=== PATIENT | male | born 1950 | race African-American/Black ===

== ENCOUNTER 2019-11-20 07:41 | Inpatient (IN) | payer MEDICAID, OTHER ==
[~2019-11-20] VITALS: Ht 182.9 cm; Wt 85.7 kg
--- NOTE | 2019-11-20 07:42 | NUR ---
ED Nurse Note: Pt BIBA from apartment for SOB since yesterday. O2 sat 4L NC 100%. Pt has history of CHF. Pt testes negative for COVID 1 month ago. Pt is alert and ox4, ambulatory but weak. Pt is set up on monitor. EKG taken.
[2019-11-20] MEDS ORDERED: ADVAIR 250-501 EACH INH (07:55)
[2019-11-20] MEDS ORDERED: MULTIVITAMINS1 EAC2 ORAL (07:55)
[2019-11-20] MEDS ORDERED: FUROSEMIDE40 MG ORAL (07:55)
[2019-11-20] MEDS ORDERED: ATORVASTATIN CA40 MG ORAL (07:55)
[2019-11-20] MEDS ORDERED: SPIRIVA18 MCG INH (07:55)
[2019-11-20] MEDS ORDERED: ASPIRIN81 MG ORAL (07:55)
[2019-11-20] MEDS ORDERED: ZESTRIL10 M1 ORAL (07:55)
[2019-11-20] MEDS ORDERED: CARVEDILOL3.125 MG ORAL (07:55)
--- NOTE | 2019-11-20 07:55 | Emergency Room Report ---
History of Present Illness General Chief Complaint: Dyspnea/Respdistress Source: Patient Present Illness HPI Patient is a 69-year-old male who presents after increased shortness of breath. He reports having run out of his Lasix 2 days ago. Reports having prior history of congestive heart failure. Patient states he also has a history of COPD and quit smoking approximately 3 weeks ago. Had prior history of myocardial infarction and states that he had some chest discomfort. Had recent taken nitroglycerin. He reports having increased leg swelling and overall shortness of breath. Denies any recent fever. Reportedly had a recent negative coronavirus test. Denies any current chest pain.Patient was brought in by EMS after increased difficulty with respirations. 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 Patient History Past Medical History: HTN, CAD, CHF, COPD, other - glaucoma Reviewed Nursing Documentation: PMH: Agreed; PSxH: Agreed Nursing Documentation-PMH Past Medical History: No History, Except For Hx Cardiac Problems: Yes Hx COPD: Yes Review of Systems Constitutional: Reports: no symptoms Eye: Reports: blurred vision Respiratory: Reports: orthopnea, shortness of breath, other Cardiovascular: Reports: edema Neurological: Reports: no symptoms Physical Exam Vital Signs Date Time Temp Pulse Resp B/P (MAP) Pulse Ox O2 Delivery O2 Flow Rate FiO2 11/20/19 07:35 97.5 93 20 143/89 (107) 100 Nasal Cannula 2.0 General Appearance: alert, GCS 15, Chronically Ill ENT: hearing grossly normal Neck: full range of motion, other - Jugular venous distention Respiratory: lungs clear, rales Cardiovascular #1: normal peripheral pulses, edema - 3+Edema Gastrointestinal: normal inspection, normal bowel sounds, non tender Musculoskeletal: normal inspection, swelling Neurologic: alert, motor strength/tone normal, rn staffing III-XII nml as tested, oriented x3 Skin: no rash Medical Decision Making Diagnostic Impression: Primary Impression: CHF exacerbation ER Course Patient presented for shortness of breath. Differential diagnosis include was not limited to CHF, pneumonia, myocardial infarction, coronavirus infection, anemia among others. Because of complexity of patient's case laboratory tests and imaging studies were ordered. Patient's EKG interpreted by me showed normal sinus rhythm with a rate of [address] or T wave changes noted. Patient does have some prior history of congestive heart failure and ran out of his medication recently. This appears to be the precipitating issue causing the shortness of breath. Patient does appear to be fluid overload however blood pressure was somewhat on the low side. Patient was given aspirin as well as breathing treatments. He was also given topical nitrates.Patient had previously been on furosemide and had previously been taking medications for glaucoma. He denies any recent fever or sick contacts.Chest x-ray 1 view interpreted by me showed cardiomegaly with vascular congestion no infiltrate or effusion. Laboratory testing showed no evidence of acute [place]. Rapid coronavirus testing was negative. Patient's BNP was noted to be markedly elevated consistent with CHF. Patient was also given topical nitrates as well as Lasix. Dr. Conway was contacted for for inpatient management Labs Test 11/20/19 08:00 11/20/19 08:10 11/20/19 08:50 White Blood Count 5.6 K/UL (4.8-10.8) Red Blood Count 5.36 M/UL (4.70-6.10) Hemoglobin 13.1 G/DL (14.2-18.0) Hematocrit 44.9 % (42.0-52.0) Mean Corpuscular Volume 84 FL (80-99) Mean Corpuscular Hemoglobin 24.5 PG (27.0-31.0) Mean Corpuscular Hemoglobin Concent 29.3 G/DL (32.0-36.0) Red Cell Distribution Width 17.1 % (11.6-14.8) Platelet Count 164 K/UL (150-450) Mean Platelet Volume 10.1 FL (6.5-10.1) Neutrophils (%) (Auto) 53.6 % (45.0-75.0) Lymphocytes (%) (Auto) 31.8 % (20.0-45.0) Monocytes (%) (Auto) 12.3 % (1.0-10.0) Eosinophils (%) (Auto) 1.6 % (0.0-3.0) Basophils (%) (Auto) 0.7 % (0.0-2.0) Sodium Level 139 MMOL/L (136-145) Potassium Level 4.4 MMOL/L (3.5-5.1) Chloride Level 107 MMOL/L (98-107) Carbon Dioxide Level 21 MMOL/L (21-32) Anion Gap 11 mmol/L (5-15) Blood Urea Nitrogen 23 mg/dL (7-18) Creatinine 1.7 MG/DL (0.55-1.30) Estimat Glomerular Filtration Rate 40.3 mL/min (>60) Glucose Level 105 MG/DL (74-106) Calcium Level 8.3 MG/DL (8.5-10.1) Total Bilirubin 1.3 MG/DL (0.2-1.0) Direct Bilirubin 1.0 MG/DL (0.0-0.3) Aspartate Amino Transf (AST/SGOT) 53 U/L (15-37) Alanine Aminotransferase (ALT/SGPT) 38 U/L (12-78) Alkaline Phosphatase 297 U/L (46-116) Troponin I 0.012 ng/mL (0.000-0.056) Pro-B-Type Natriuretic Peptide 19145 pg/mL (0-125) Total Protein 7.1 G/DL (6.4-8.2) Albumin 3.2 G/DL (3.4-5.0) Globulin 3.9 g/dL Albumin/Globulin Ratio 0.8 (1.0-2.7) Thyroid Stimulating Hormone (TSH) 2.107 uiU/mL (0.358-3.740) Urine Color Yellow Urine Appearance Clear Urine pH 5 (4.5-8.0) Urine Specific [place] 1.020 (1.005-1.035) Urine Protein 4+ (NEGATIVE) Urine Glucose (UA) Negative (NEGATIVE) Urine Ketones Negative (NEGATIVE) Urine Blood Negative (NEGATIVE) Urine Nitrite Negative (NEGATIVE) Urine Bilirubin Negative (NEGATIVE) Urine Urobilinogen 4 MG/DL (0.0-1.0) Urine Leukocyte Esterase Negative (NEGATIVE) Urine RBC 0 /HPF (0 - 0) Urine WBC 0-2 /HPF (0 - 0) Urine Squamous Epithelial Cells Few /LPF (NONE/OCC) Urine Bacteria Occasional /HPF (NONE) EKG Diagnostic Results Rate: normal Rhythm: NSR ST Segments: no acute changes Last Vital Signs Date Time Temp Pulse Resp B/P (MAP) Pulse Ox O2 Delivery O2 Flow Rate FiO2 11/20/19 07:35 97.5 93 20 143/89 (107) 100 Nasal Cannula 2.0 Status: unchanged Disposition: ADMITTED INPATIENT Condition: Stable Odilon Tubbs MD Nov 20, 2019 07:55
[2019-11-20] MEDS ORDERED: Albuterol/Ipratropium 3ml neb HHN SCH (08:00)
[2019-11-20] MEDS ORDERED: Nitroglycerin 2% oint pkt TOPIC ONE (08:00)
[2019-11-20 08:11] LABS: BASOPHILS % (AUTO) 0.7 % (0.0-2.0); EOSINOPHILS % (AUTO) 1.6 % (0.0-3.0); HEMATOCRIT 44.9 % (42.0-52.0); HEMOGLOBIN 13.1 G/DL (14.2-18.0); LYMPHOCYTES % (AUTO) 31.8 % (20.0-45.0); MEAN CORPUSCULAR VOLUME 84 FL (80-99); MONOCYTES % (AUTO) 12.3 % (1.0-10.0); NEUTROPHILS % (AUTO) 53.6 % (45.0-75.0); PLATELET COUNT 164 K/UL (150-450); RED BLOOD COUNT 5.36 M/UL (4.70-6.10); RED CELL DISTRIBUTION WIDTH 17.1 % (11.6-14.8); WHITE BLOOD COUNT 5.6 K/UL (4.8-10.8)
[2019-11-20 08:14] VITALS: BP 111/87
[2019-11-20 08:21] LABS: ANION GAP 11 mmol/L (5-15); BLOOD UREA NITROGEN 23 mg/dL (7-18); CALCIUM 8.3 MG/DL (8.5-10.1); CARBON DIOXIDE 21 MMOL/L (21-32); CHLORIDE 107 MMOL/L (98-107); CREATININE 1.7 MG/DL (0.55-1.30); POTASSIUM 4.4 MMOL/L (3.5-5.1); SODIUM 139 MMOL/L (136-145)
[2019-11-20 08:35] LABS: ALANINE AMINOTRANSFERASE 38 U/L (12-78); ALBUMIN 3.2 G/DL (3.4-5.0); ALBUMIN/GLOBULIN RATIO 0.8 (1.0-2.7); ALKALINE PHOSPHATASE 297 U/L (46-116); ASPARTATE AMINO TRANSFERASE 53 U/L (15-37); BILIRUBIN,TOTAL 1.3 MG/DL (0.2-1.0)
--- NOTE | 2019-11-20 08:59 | NUR ---
ED Nurse Note: Urine sent.
[2019-11-20 09:13] LABS: APPEARANCE,URINE CLEAR; BILIRUBIN, URINE NEGATIVE (NEGATIVE); GLUCOSE, URINE (UA) NEGATIVE (NEGATIVE); KETONES,URINE NEGATIVE (NEGATIVE); LEUKOCYTE ESTERASE ,URINE NEGATIVE (NEGATIVE); NITRITE,URINE NEGATIVE (NEGATIVE); PH,URINE 5 (4.5-8.0); PROTEIN,URINE 4+ (NEGATIVE); UROBILINOGEN,URINE 4 MG/DL (0.0-1.0)
[2019-11-20 09:14] LABS: COLOR,URINE YELLOW
[2019-11-20 10:04] VITALS: BP 118/81
--- NOTE | 2019-11-20 10:17 | NUR ---
ED Nurse Note: Report given to Sadiq MELGOZA.
--- NOTE | 2019-11-20 10:18 | Diagnostic Imaging Report ---
Procedure: XRAY Chest 1v Reason for study: Reason For Exam: SOB Comparison films: None. FINDINGS: A single one view chest is obtained. Vascularity is normal. The lung gonzalez are clear bilaterally. There is cardiomegaly. No large effusion seen. The bony thorax appear unremarkable. IMPRESSION: NO ACUTE CARDIOPULMONARY DISEASE.
--- NOTE | 2019-11-20 10:25 | NUR ---
ED Nurse Note: Pt transferred with all belongings. Pt is alert and ox4, amb but weak. Pt sent with all belongings.
--- NOTE | 2019-11-20 10:30 | NUR ---
NURSE NOTES: Received pt from MARKET DIRECTOR Dipti,all admision assessments and instructions done and pt verbally confirmed to understand all. pt is awake and alert, pt has NC 2LMP, pt is on continues heart monitoring, pt has intact iv access LAC 20G SL. Dr George group are aware about admission, MD is coming to visit pt. all belongings checked with RN and are with pt. pt has meds will sent to pharmacy. all needs attended, bed is locked and is in the lowest position, call light within easy reach. will continue to monitor.
[2019-11-20 12:00] VITALS: BP 114/83
--- NOTE | 2019-11-20 12:34 | NUR ---
NURSE NOTES: Dr George hasn't ca;;ed back yet, RN called again and left massage, waiting to call back. will continue to monitor.
--- NOTE | 2019-11-20 12:56 | NUR ---
RESPIRATORY NOTE: treatment was not given because RAPID results weren't ready
--- NOTE | 2019-11-20 14:03 | NUR ---
NURSE NOTES: Dr Payton ordered to continue home meds, noted and carried out. and ordered SCD for DVT prophylaxis but RN explained to Dr the legs are swollen and Dr changed SCD to hep, noted and carried out.
--- NOTE | 2019-11-20 15:18 | NUR ---
Social Work This SW received a consult due to homeless. This SW met with patient who explains he plans to discharge to home with a friend, while requesting homeless long term information. Shelters and resources provided. Patient explains he receives only food stamps and general relief and does not qualify for Board and Care at this time. Patient denied any substance abuse or mental health concerns, appears pleasant and cooperative, well-groomed and remains independent and alert/oriented x4. No other needs/concerns at this time.
[2019-11-20 16:00] VITALS: BP 102/73
--- NOTE | 2019-11-20 16:01 | Consultation ---
History of Present Illness General Chief Complaint: Dyspnea/Respdistress Reason for Consultation: VALERIO Present Illness HPI This is a 69 year old male with past medical history of CHF, COPD who presents with SOB, BLE edema. Pt states he ran out of his lasix a few days ago. Notes increased SOB and b/l leg swelling. Mild chest discomfort. Denies f/c, n/v, d/c , abd pain, dysuria. In ED, trop neg, BNP elevated. pt given nitropatch, lasix 20mg IV. Allergies: Coded Allergies: No Known Allergies (Unverified , 11/20/19) Medication History Scheduled Aspirin* (Aspirin*), 81 MG ORAL DAILY, (Reported) Atorvastatin Calcium* (Atorvastatin Calcium*), 40 MG ORAL BEDTIME, (Reported) Carvedilol* (Carvedilol*), 3.125 MG ORAL EVERY 12 HOURS, (Reported) Fluticasone/Salmeterol (Advair 250-50 Diskus), 1 PUFF INH EVERY 12 HOURS, ( Reported) Furosemide* (Lasix*), 40 MG ORAL DAILY, (Reported) Lisinopril* (Zestril*), 10 MG ORAL DAILY, (Reported) Multivitamins* (Multivitamins*), 1 TAB ORAL DAILY, (Reported) Tiotropium [place]* (Spiriva*), 1 PUFF INH DAILY, (Reported) Patient History Healthcare decision maker Resuscitation status Advanced Directive on File Review of Systems Constitutional: Reports: weakness Eye: Denies: no symptoms, see HPI, eye pain, blurred vision, tearing, double vision, nose pain, nose congestion, acuity changes, discharge, other ENT: Denies: no symptoms, see HPI, ear pain, ear discharge, nose pain, nose congestion, throat pain, throat swelling, mouth pain, hearing loss, nasal discharge, other Respiratory: Reports: cough, shortness of breath Cardiovascular: Reports: chest pain, edema Gastrointestinal: Denies: no symptoms, see HPI, abdominal pain, constipation, diarrhea, nausea, vomiting, melena, hematemesis, other Genitourinary: Denies: no symptoms, see HPI, discharge, dysuria, frequency, hematuria, pain, retention, incontinence, urgency, vag bleed/dc, other Skin: Denies: no symptoms, see HPI, rash, change in color, change in hair/nails , dryness, lesions, other Psychiatric: Denies: no symptoms, see HPI, prior hx, anxiety, depressed feelings, emotional problems, SI, HI, hallucinations, other Neurological: Denies: no symptoms, see HPI, headache, numbness, paresthesia, seizure, tingling, tremors, focal weakness, syncope, dizziness, other Endocrine: Denies: no symptoms, see HPI, excessive sweating, flushing, intolerance to temperature, increased thirst, increased urine, unexplained weight loss, other Hematologic/Lymphatic: Denies: no symptoms, see HPI, anemia, blood clots, easy bleeding, easy bruising, swollen glands, diathesis, other Physical Exam General Appearance: no apparent distress, alert Lines, tubes and drains: peripheral HEENT: normocephalic, atraumatic Neck: non-tender, normal alignment Respiratory/Chest: crackles/rales Abdomen: normal bowel sounds, non tender, soft Extremities: normal range of motion, non-tender Skin Exam: normal pigmentation Neurologic: alert, oriented x 3 Last 24 Hour Vital Signs Date Time Temp Pulse Resp B/P (MAP) Pulse Ox O2 Delivery O2 Flow Rate FiO2 11/20/19 12:00 96.1 89 20 114/83 (93) 100 11/20/19 11:25 91 11/20/19 10:47 84 11/20/19 10:45 Nasal Cannula 2.0 11/20/19 10:32 97.5 82 19 121/80 99 Nasal Cannula 2.0 11/20/19 10:04 97.5 84 18 118/81 100 Nasal Cannula 2.0 11/20/19 08:14 97.5 91 17 111/87 99 Nasal Cannula 2.0 11/20/19 08:14 91 17 Nasal Cannula 2.0 99 11/20/19 08:05 102/84 11/20/19 07:35 97.5 93 20 143/89 (107) 100 Nasal Cannula 2.0 Laboratory Tests Test 11/20/19 08:00 11/20/19 08:10 11/20/19 08:50 White Blood Count 5.6 K/UL (4.8-10.8) Red Blood Count 5.36 M/UL (4.70-6.10) Hemoglobin 13.1 G/DL (14.2-18.0) L Hematocrit 44.9 % (42.0-52.0) Mean Corpuscular Volume 84 FL (80-99) Mean Corpuscular Hemoglobin 24.5 PG (27.0-31.0) L Mean Corpuscular Hemoglobin Concent 29.3 G/DL (32.0-36.0) L Red Cell Distribution Width 17.1 % (11.6-14.8) H Platelet Count 164 K/UL (150-450) Mean Platelet Volume 10.1 FL (6.5-10.1) Neutrophils (%) (Auto) 53.6 % (45.0-75.0) Lymphocytes (%) (Auto) 31.8 % (20.0-45.0) Monocytes (%) (Auto) 12.3 % (1.0-10.0) H Eosinophils (%) (Auto) 1.6 % (0.0-3.0) Basophils (%) (Auto) 0.7 % (0.0-2.0) Sodium Level 139 MMOL/L (136-145) Potassium Level 4.4 MMOL/L (3.5-5.1) Chloride Level 107 MMOL/L (98-107) Carbon Dioxide Level 21 MMOL/L (21-32) Anion Gap 11 mmol/L (5-15) Blood Urea Nitrogen 23 mg/dL (7-18) H Creatinine 1.7 MG/DL (0.55-1.30) H Estimat Glomerular Filtration Rate 40.3 mL/min (>60) Glucose Level 105 MG/DL (74-106) Calcium Level 8.3 MG/DL (8.5-10.1) L Total Bilirubin 1.3 MG/DL (0.2-1.0) H Direct Bilirubin 1.0 MG/DL (0.0-0.3) H Aspartate Amino Transf (AST/SGOT) 53 U/L (15-37) H Alanine Aminotransferase (ALT/SGPT) 38 U/L (12-78) Alkaline Phosphatase 297 U/L (46-116) H Troponin I 0.012 ng/mL (0.000-0.056) Pro-B-Type Natriuretic Peptide 66380 pg/mL (0-125) H Total Protein 7.1 G/DL (6.4-8.2) Albumin 3.2 G/DL (3.4-5.0) L Globulin 3.9 g/dL Albumin/Globulin Ratio 0.8 (1.0-2.7) L Thyroid Stimulating Hormone (TSH) 2.107 uiU/mL (0.358-3.740) Urine Color Yellow Urine Appearance Clear Urine pH 5 (4.5-8.0) Urine Specific [place] 1.020 (1.005-1.035) Urine Protein 4+ (NEGATIVE) H Urine Glucose (UA) Negative (NEGATIVE) Urine Ketones Negative (NEGATIVE) Urine Blood Negative (NEGATIVE) Urine Nitrite Negative (NEGATIVE) Urine Bilirubin Negative (NEGATIVE) Urine Urobilinogen 4 MG/DL (0.0-1.0) H Urine Leukocyte Esterase Negative (NEGATIVE) Urine RBC 0 /HPF (0 - 0) Urine WBC 0-2 /HPF (0 - 0) Urine Squamous Epithelial Cells Few /LPF (NONE/OCC) Urine Bacteria Occasional /HPF (NONE) Microbiology Date/Time Source Procedure Growth Status 11/20/19 08:10 Nasopharynx SARS-CoV-2 RdRp Gene Assay - Final Complete Height (Feet): 6 Height (Inches): 0.00 Weight (Pounds): 200 Medications Current Medications Medications (Trade) Dose Ordered Sig/Kellee Route PRN Reason Start Time Stop Time Status Last Admin Dose Admin Acetaminophen (Tylenol) 650 mg Q6H PRN ORAL HERNANDEZ/Pain 1-4/T>100.4 11/20/19 13:15 12/20/19 13:14 11/20/19 13:31 Aspirin (ASA) 81 mg DAILY ORAL 11/21/19 09:00 01/05/20 08:59 Atorvastatin Calcium (Lipitor) 40 mg BEDTIME ORAL 11/20/19 21:00 02/18/20 20:59 Carvedilol (Coreg) 3.125 mg EVERY 12 HOURS ORAL 11/20/19 21:00 12/20/19 20:59 Furosemide (Lasix) 40 mg DAILY ORAL 11/21/19 09:00 12/21/19 08:59 Heparin Sodium (Porcine) (Heparin 5000 units/ml) 5,000 units EVERY 12 HOURS SUBQ 11/20/19 21:00 01/04/20 20:59 Lisinopril (ZestriL) 10 mg DAILY ORAL 11/21/19 09:00 12/21/19 08:59 Multivitamins (Multivitamins) 1 tab DAILY ORAL 11/21/19 09:00 12/21/19 08:59 Salmeterol Xinafoate/ Fluticasone (Advair 250/50 Diskus) 1 puffs EVERY 12 HOURS INH 11/20/19 21:00 02/18/20 20:59 Assessment/Plan Diagnosis [place] I: #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 Nov 20, 2019 16:01
--- NOTE | 2019-11-20 16:33 | Consultation ---
History of Present Illness General Date patient seen: Nov 20, 2019 Time patient seen: 16:26 Chief Complaint: Dyspnea/Respdistress Reason for Consultation: VALERIO Present Illness HPI 69 year old male presents with CHF exacerbation after running out of his medications. He has hx of CHF, COPD who presents with SOB, BLE edema. Pt states he ran out of his lasix a few days ago. Notes increased SOB and b/l leg swelling. Mild chest discomfort. Denies f/c, n/v, d/c, abd pain, dysuria. In ED, trop neg, BNP elevated. pt given nitropatch, lasix 20mg IV. Allergies: Coded Allergies: No Known Allergies (Unverified , 11/20/19) Medication History Scheduled Aspirin* (Aspirin*), 81 MG ORAL DAILY, (Reported) Atorvastatin Calcium* (Atorvastatin Calcium*), 40 MG ORAL BEDTIME, (Reported) Carvedilol* (Carvedilol*), 3.125 MG ORAL EVERY 12 HOURS, (Reported) Fluticasone/Salmeterol (Advair 250-50 Diskus), 1 PUFF INH EVERY 12 HOURS, ( Reported) Furosemide* (Lasix*), 40 MG ORAL DAILY, (Reported) Lisinopril* (Zestril*), 10 MG ORAL DAILY, (Reported) Multivitamins* (Multivitamins*), 1 TAB ORAL DAILY, (Reported) Tiotropium [place]* (Spiriva*), 1 PUFF INH DAILY, (Reported) Patient History Healthcare decision maker Resuscitation status Advanced Directive on File Review of Systems Constitutional: Reports: no symptoms ENT: Reports: no symptoms Respiratory: Reports: orthopnea, shortness of breath Cardiovascular: Reports: no symptoms Gastrointestinal: Reports: no symptoms Genitourinary: Reports: no symptoms Musculoskeletal: Reports: no symptoms Skin: Reports: no symptoms Psychiatric: Reports: no symptoms Neurological: Reports: no symptoms Endocrine: Reports: no symptoms Hematologic/Lymphatic: Reports: no symptoms Physical Exam General Appearance: no apparent distress, alert, lethargic Lines, tubes and drains: peripheral HEENT: normocephalic, atraumatic, mucous membranes moist, PERRL Neck: non-tender, normal alignment, normal inspection Respiratory/Chest: chest wall non-tender, lungs clear, normal breath sounds, no respiratory distress Cardiovascular/Chest: normal peripheral pulses, normal rate, regular rhythm Abdomen: normal bowel sounds, non tender, no organomegaly Extremities: normal range of motion, non-tender, normal inspection, no calf tenderness, normal capillary refill, non-pitting Skin Exam: normal pigmentation, warm/dry, cyanotic 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, no motor/sensory deficits Last 24 Hour Vital Signs Date Time Temp Pulse Resp B/P (MAP) Pulse Ox O2 Delivery O2 Flow Rate FiO2 11/20/19 16:00 97.9 88 20 102/73 (83) 98 11/20/19 12:00 96.1 89 20 114/83 (93) 100 11/20/19 11:25 91 11/20/19 10:47 84 11/20/19 10:45 Nasal Cannula 2.0 11/20/19 10:32 97.5 82 19 121/80 99 Nasal Cannula 2.0 11/20/19 10:04 97.5 84 18 118/81 100 Nasal Cannula 2.0 11/20/19 08:14 97.5 91 17 111/87 99 Nasal Cannula 2.0 11/20/19 08:14 91 17 Nasal Cannula 2.0 99 11/20/19 08:05 102/84 11/20/19 07:35 97.5 93 20 143/89 (107) 100 Nasal Cannula 2.0 Laboratory Tests Test 11/20/19 08:00 11/20/19 08:10 11/20/19 08:50 White Blood Count 5.6 K/UL (4.8-10.8) Red Blood Count 5.36 M/UL (4.70-6.10) Hemoglobin 13.1 G/DL (14.2-18.0) L Hematocrit 44.9 % (42.0-52.0) Mean Corpuscular Volume 84 FL (80-99) Mean Corpuscular Hemoglobin 24.5 PG (27.0-31.0) L Mean Corpuscular Hemoglobin Concent 29.3 G/DL (32.0-36.0) L Red Cell Distribution Width 17.1 % (11.6-14.8) H Platelet Count 164 K/UL (150-450) Mean Platelet Volume 10.1 FL (6.5-10.1) Neutrophils (%) (Auto) 53.6 % (45.0-75.0) Lymphocytes (%) (Auto) 31.8 % (20.0-45.0) Monocytes (%) (Auto) 12.3 % (1.0-10.0) H Eosinophils (%) (Auto) 1.6 % (0.0-3.0) Basophils (%) (Auto) 0.7 % (0.0-2.0) Sodium Level 139 MMOL/L (136-145) Potassium Level 4.4 MMOL/L (3.5-5.1) Chloride Level 107 MMOL/L (98-107) Carbon Dioxide Level 21 MMOL/L (21-32) Anion Gap 11 mmol/L (5-15) Blood Urea Nitrogen 23 mg/dL (7-18) H Creatinine 1.7 MG/DL (0.55-1.30) H Estimat Glomerular Filtration Rate 40.3 mL/min (>60) Glucose Level 105 MG/DL (74-106) Calcium Level 8.3 MG/DL (8.5-10.1) L Total Bilirubin 1.3 MG/DL (0.2-1.0) H Direct Bilirubin 1.0 MG/DL (0.0-0.3) H Aspartate Amino Transf (AST/SGOT) 53 U/L (15-37) H Alanine Aminotransferase (ALT/SGPT) 38 U/L (12-78) Alkaline Phosphatase 297 U/L (46-116) H Troponin I 0.012 ng/mL (0.000-0.056) Pro-B-Type Natriuretic Peptide 33441 pg/mL (0-125) H Total Protein 7.1 G/DL (6.4-8.2) Albumin 3.2 G/DL (3.4-5.0) L Globulin 3.9 g/dL Albumin/Globulin Ratio 0.8 (1.0-2.7) L Thyroid Stimulating Hormone (TSH) 2.107 uiU/mL (0.358-3.740) Urine Color Yellow Urine Appearance Clear Urine pH 5 (4.5-8.0) Urine Specific [place] 1.020 (1.005-1.035) Urine Protein 4+ (NEGATIVE) H Urine Glucose (UA) Negative (NEGATIVE) Urine Ketones Negative (NEGATIVE) Urine Blood Negative (NEGATIVE) Urine Nitrite Negative (NEGATIVE) Urine Bilirubin Negative (NEGATIVE) Urine Urobilinogen 4 MG/DL (0.0-1.0) H Urine Leukocyte Esterase Negative (NEGATIVE) Urine RBC 0 /HPF (0 - 0) Urine WBC 0-2 /HPF (0 - 0) Urine Squamous Epithelial Cells Few /LPF (NONE/OCC) Urine Bacteria Occasional /HPF (NONE) Microbiology Date/Time Source Procedure Growth Status 11/20/19 08:10 Nasopharynx SARS-CoV-2 RdRp Gene Assay - Final Complete Height (Feet): 6 Height (Inches): 0.00 Weight (Pounds): 200 Medications Current Medications Medications (Trade) Dose Ordered Sig/Kellee Route PRN Reason Start Time Stop Time Status Last Admin Dose Admin Acetaminophen (Tylenol) 650 mg Q6H PRN ORAL HERNANDEZ/Pain 1-4/T>100.4 11/20/19 13:15 12/20/19 13:14 11/20/19 13:31 Aspirin (ASA) 81 mg DAILY ORAL 11/21/19 09:00 01/05/20 08:59 Atorvastatin Calcium (Lipitor) 40 mg BEDTIME ORAL 11/20/19 21:00 02/18/20 20:59 Carvedilol (Coreg) 3.125 mg EVERY 12 HOURS ORAL 11/20/19 21:00 12/20/19 20:59 Furosemide (Lasix) 40 mg DAILY ORAL 11/21/19 09:00 12/21/19 08:59 Heparin Sodium (Porcine) (Heparin 5000 units/ml) 5,000 units EVERY 12 HOURS SUBQ 11/20/19 21:00 8 20:59 Lisinopril (ZestriL) 10 mg DAILY ORAL 11/21/19 09:00 12/21/19 08:59 Multivitamins (Multivitamins) 1 tab DAILY ORAL 11/21/19 09:00 12/21/19 08:59 Salmeterol Xinafoate/ Fluticasone (Advair 250/50 Diskus) 1 puffs EVERY 12 HOURS INH 11/20/19 21:00 02/18/20 20:59 Assessment/Plan Status: stable Assessment/Plan: Assessment/Plan Status: stable Assessment/Plan: 69y/o male with pmh CHF, COPD who presents with SOB, BLE edema, admitted for CHF exacerbation. PLAN IV lasix Monitor telemetry Serial EKG/troponin Echocardiogram Replete electrolytes Monitor renal function DASH diet fluid restriction - Filso[place],Kt M. MD Nov 20, 2019 16:33
--- NOTE | 2019-11-20 19:25 | NUR ---
NURSE NOTES: Report received from Sadiq MELGOZA. Patient is awake and alert x 4. Patient is noted to currently be on room air and complains of shortness of breath. Charli MELGOZA applied 2 liters of oxygen via nasal canula per MD orders. Preformed deep breathing with patient. Patient no longer complains of shortness of breath. However, patient states that he would like to increase his Lasix as he usually takes it more often when his congestive heart failures "acts up". Charli MELGOZA paged primary MD. Patient noted to have slight edema in bilateral lower extremities. Endorsed that patient has urine sample ordered. Urinal at bedside. Educated patient to call Charli MELGOZA when able to urinate. Patient verbalized he will. Patient has no other complaints at this time. Will continue to follow plan of care.
--- NOTE | 2019-11-20 19:27 | NUR ---
HAND-OFF: Report given to RHONA Augustin.pt is awake and stable. Endorsed plan of care. Endorsed to F/U for U/A.
[2019-11-20 20:00] VITALS: BP 115/87
[2019-11-20] MEDS: Heparin 5000 units/ml inj SUBQ SCH (21:13)
[2019-11-20] MEDS: Atorvastatin 20mg tab ORAL SCH (21:15)
[2019-11-20] MEDS: Wixela 250/50 Inhaler - 60 dose INH SCH (21:16)
[2019-11-20] MEDS: Latanoprost 0.005% Opth 2.5ml Soln BOTH EYES SCH (21:16)
--- NOTE | 2019-11-20 22:29 | Consultation ---
History of Present Illness General Date patient seen: Nov 20, 2019 Reason for Hospitalization: Dyspnea/Respdistress Present Illness HPI 61-year-old male with multi-medical committees including CHF with bilateral lower extremity edema complaining of shortness of breath deep inspiration noting having some abdominal pain on the right upper quadrant. Abnormal LFTs. Admitted further care and management. Surgery called to find and assist with care. Patient seen, patient [place], chart reviewed. On examination focal right upper quadrant tenderness with deep inspiration. No nausea vomiting fever chills. Flatus. Allergies: Coded Allergies: No Known Allergies (Unverified , 11/20/19) COVID-19 Screening Contact w/high risk pt: No Recent Travel to affected area: No Experienced COVID-19 symptoms?: No COVID-19 symptoms experienced: Shortness of Breath Medication History Scheduled Aspirin* (Aspirin*), 81 MG ORAL DAILY, (Reported) Atorvastatin Calcium* (Atorvastatin Calcium*), 40 MG ORAL BEDTIME, (Reported) Carvedilol* (Carvedilol*), 3.125 MG ORAL EVERY 12 HOURS, (Reported) Fluticasone/Salmeterol (Advair 250-50 Diskus), 1 PUFF INH EVERY 12 HOURS, ( Reported) Furosemide* (Lasix*), 40 MG ORAL DAILY, (Reported) Lisinopril* (Zestril*), 10 MG ORAL DAILY, (Reported) Multivitamins* (Multivitamins*), 1 TAB ORAL DAILY, (Reported) Tiotropium [place]* (Spiriva*), 1 PUFF INH DAILY, (Reported) Patient History History Provided By: Patient, Medical Record, PMD Healthcare decision maker Resuscitation status Advanced Directive on File Past Medical/Surgical History Past Medical/Surgical History: (1) Abnormal LFTs (2) CHF exacerbation (3) Chest pain Review of Systems Review of Symptoms General ROS: no weight loss or fever Psychological ROS: no depression or mood changes, no memory loss Ophthalmic ROS: no visual changes or eye irritation ENT ROS: no nasal congestion, hearing loss, dizziness Allergy and Immunology ROS: no allergic symptoms or urticaria Hematological and Lymphatic ROS: no swollen glands, unusual bleeding or bruising Endocrine ROS: no polyuria, polydipsia, weight changes, temperature intolerance Respiratory ROS: no cough, shortness of breath, or wheezing Cardiovascular ROS: + chest pain or dyspnea on exertion Gastrointestinal ROS: + abdominal pain, bright red blood in stool. Musculoskeletal ROS: no myalgias or arthralgias Neurological ROS: no TIA or stroke symptoms Dermatological ROS: no new or changing skin lesions, rashes or pruritis Physical Exam Physical Exam General appearance: alert, cooperative, no distress, appears stated age Head: Normocephalic, without obvious abnormality, atraumatic Eyes: conjunctivae/corneas clear. PERRL, EOM's intact. Fundi benign Throat: Lips, mucosa, and tongue normal. Teeth and gums normal Neck: supple, symmetrical, trachea midline, no adenopathy, thyroid: not enlarged, symmetric, no tenderness/mass/nodules, no carotid bruit and no JVD Lungs: clear to auscultation bilaterally Heart: regular rate and rhythm, S1, S2 normal, no murmur, click, rub or gallop Abdomen: soft, right upper quadrant-tender. Positive Horvath's bowel sounds normal. No masses, no organomegaly Extremities: extremities normal, atraumatic, ++ bilateral edema Pulses: 2+ and symmetric Skin: Skin color, texture, turgor normal. No rashes or lesions Neurologic: Grossly normal Last 24 Hour Vital Signs Date Time Temp Pulse Resp B/P (MAP) Pulse Ox O2 Delivery O2 Flow Rate FiO2 11/20/19 21:16 82 115/77 11/20/19 16:00 97.9 88 20 102/73 (83) 98 11/20/19 15:13 98 11/20/19 12:00 96.1 89 20 114/83 (93) 100 11/20/19 11:25 91 11/20/19 10:47 84 11/20/19 10:45 Nasal Cannula 2.0 11/20/19 10:32 97.5 82 19 121/80 99 Nasal Cannula 2.0 11/20/19 10:04 97.5 84 18 118/81 100 Nasal Cannula 2.0 11/20/19 08:14 97.5 91 17 111/87 99 Nasal Cannula 2.0 11/20/19 08:14 91 17 Nasal Cannula 2.0 99 11/20/19 08:05 102/84 11/20/19 07:35 97.5 93 20 143/89 (107) 100 Nasal Cannula 2.0 Laboratory Tests Test 11/20/19 08:00 11/20/19 08:10 11/20/19 08:50 White Blood Count 5.6 K/UL (4.8-10.8) Red Blood Count 5.36 M/UL (4.70-6.10) Hemoglobin 13.1 G/DL (14.2-18.0) L Hematocrit 44.9 % (42.0-52.0) Mean Corpuscular Volume 84 FL (80-99) Mean Corpuscular Hemoglobin 24.5 PG (27.0-31.0) L Mean Corpuscular Hemoglobin Concent 29.3 G/DL (32.0-36.0) L Red Cell Distribution Width 17.1 % (11.6-14.8) H Platelet Count 164 K/UL (150-450) Mean Platelet Volume 10.1 FL (6.5-10.1) Neutrophils (%) (Auto) 53.6 % (45.0-75.0) Lymphocytes (%) (Auto) 31.8 % (20.0-45.0) Monocytes (%) (Auto) 12.3 % (1.0-10.0) H Eosinophils (%) (Auto) 1.6 % (0.0-3.0) Basophils (%) (Auto) 0.7 % (0.0-2.0) Sodium Level 139 MMOL/L (136-145) Potassium Level 4.4 MMOL/L (3.5-5.1) Chloride Level 107 MMOL/L (98-107) Carbon Dioxide Level 21 MMOL/L (21-32) Anion Gap 11 mmol/L (5-15) Blood Urea Nitrogen 23 mg/dL (7-18) H Creatinine 1.7 MG/DL (0.55-1.30) H Estimat Glomerular Filtration Rate 40.3 mL/min (>60) Glucose Level 105 MG/DL (74-106) Calcium Level 8.3 MG/DL (8.5-10.1) L Total Bilirubin 1.3 MG/DL (0.2-1.0) H Direct Bilirubin 1.0 MG/DL (0.0-0.3) H Aspartate Amino Transf (AST/SGOT) 53 U/L (15-37) H Alanine Aminotransferase (ALT/SGPT) 38 U/L (12-78) Alkaline Phosphatase 297 U/L (46-116) H Troponin I 0.012 ng/mL (0.000-0.056) Pro-B-Type Natriuretic Peptide 45015 pg/mL (0-125) H Total Protein 7.1 G/DL (6.4-8.2) Albumin 3.2 G/DL (3.4-5.0) L Globulin 3.9 g/dL Albumin/Globulin Ratio 0.8 (1.0-2.7) L Thyroid Stimulating Hormone (TSH) 2.107 uiU/mL (0.358-3.740) Urine Color Yellow Urine Appearance Clear Urine pH 5 (4.5-8.0) Urine Specific [place] 1.020 (1.005-1.035) Urine Protein 4+ (NEGATIVE) H Urine Glucose (UA) Negative (NEGATIVE) Urine Ketones Negative (NEGATIVE) Urine Blood Negative (NEGATIVE) Urine Nitrite Negative (NEGATIVE) Urine Bilirubin Negative (NEGATIVE) Urine Urobilinogen 4 MG/DL (0.0-1.0) H Urine Leukocyte Esterase Negative (NEGATIVE) Urine RBC 0 /HPF (0 - 0) Urine WBC 0-2 /HPF (0 - 0) Urine Squamous Epithelial Cells Few /LPF (NONE/OCC) Urine Bacteria Occasional /HPF (NONE) Microbiology Date/Time Source Procedure Growth Status 11/20/19 08:10 Nasopharynx SARS-CoV-2 RdRp Gene Assay - Final Complete 11/20/19 08:06 Rectum Received Height (Feet): 6 Height (Inches): 0.00 Weight (Pounds): 200 Medications Current Medications Medications (Trade) Dose Ordered Sig/Kellee Route PRN Reason Start Time Stop Time Status Last Admin Dose Admin Acetaminophen (Tylenol) 650 mg Q6H PRN ORAL HERNANDEZ/Pain 1-4/T>100.4 11/20/19 13:15 12/20/19 13:14 11/20/19 21:15 Aspirin (ASA) 81 mg DAILY ORAL 11/21/19 09:00 01/05/20 08:59 Atorvastatin Calcium (Lipitor) 40 mg BEDTIME ORAL 11/20/19 21:00 02/18/20 20:59 11/20/19 21:15 Carvedilol (Coreg) 3.125 mg EVERY 12 HOURS ORAL 11/20/19 21:00 12/20/19 20:59 11/20/19 21:16 Furosemide (Lasix) 20 mg EVERY 12 HOURS ORAL 11/20/19 21:00 12/20/19 20:59 11/20/19 21:16 Heparin Sodium (Porcine) (Heparin 5000 units/ml) 5,000 units EVERY 12 HOURS SUBQ 11/20/19 21:00 8 20:59 11/20/19 21:13 Latanoprost (Xalatan) 1 drop BEDTIME BOTH EYES 11/20/19 21:00 12/20/19 20:59 11/20/19 21:16 Multivitamins (Multivitamins) 1 tab DAILY ORAL 11/21/19 09:00 12/21/19 08:59 Salmeterol Xinafoate/ Fluticasone (Advair 250/50 Diskus) 1 puffs EVERY 12 HOURS INH 11/20/19 21:00 02/18/20 20:59 11/20/19 21:16 Tiotropium [place] (Spiriva Inhaler) 1 puff DAILY INH 11/21/19 09:00 12/21/19 08:59 Assessment/Plan Problem List: (1) CHF exacerbation ICD Codes: I50.9 - Heart failure, unspecified SNOMED: 788223496, [id number] (2) Chest pain ICD Codes: R07.9 - Chest pain, unspecified SNOMED: 97458573 (3) Abnormal LFTs Assessment & Plan: 61-year-old male elevated LFTs CHF shortness of breath worse with deep inspiration. Positive Horvath's or upper quadrant tender on palpation respiratory alert Ultrasound abdomen ordered Trend LFTs We will follow with recommendations thank you let me participate in patient's care ICD Codes: R94.5 - Abnormal results of liver function studies SNOMED: 112517072 Arsh Soto Nov 20, 2019 22:29
[2019-11-20 23:43] LABS: APPEARANCE,URINE CLEAR; BILIRUBIN, URINE NEGATIVE (NEGATIVE); GLUCOSE, URINE (UA) NEGATIVE (NEGATIVE); KETONES,URINE NEGATIVE (NEGATIVE); LEUKOCYTE ESTERASE ,URINE NEGATIVE (NEGATIVE); NITRITE,URINE NEGATIVE (NEGATIVE); PH,URINE 5 (4.5-8.0); UROBILINOGEN,URINE 4 MG/DL (0.0-1.0)
[2019-11-20 23:45] LABS: COLOR,URINE YELLOW; PROTEIN,URINE NEGATIVE (NEGATIVE)
[2019-11-21] VITALS: BP 121/85
[2019-11-21] MEDS: TraZODone 50mg tab ORAL SCH ×2 (01:10→20:21)
[2019-11-21 04:00] VITALS: BP 122/87
--- NOTE | 2019-11-21 07:02 | History and Physical ---
History of Present Illness General Date patient seen: Nov 20, 2019 Time patient seen: 15:00 Reason for Hospitalization: Dyspnea/Respdistress Present Illness HPI 69y/o male with pmh CHF, COPD who presents with SOB, BLE edema. Pt states he ran out of his lasix a few days ago. Notes increased SOB and b/l leg swelling. Mild chest discomfort. Denies f/c, n/v, d/c, abd pain, dysuria. In ED, trop neg, BNP elevated. pt given nitropatch, lasix 20mg IV. PMH: as above SH: homeless, denies T/D. States he quit smoking 3 weeks ago FMH: denies Allergies: Coded Allergies: No Known Allergies (Unverified , 11/20/19) COVID-19 Screening Contact w/high risk pt: No Recent Travel to affected area: No Experienced COVID-19 symptoms?: No COVID-19 symptoms experienced: Shortness of Breath Medication History Scheduled Aspirin* (Aspirin*), 81 MG ORAL DAILY, (Reported) Atorvastatin Calcium* (Atorvastatin Calcium*), 40 MG ORAL BEDTIME, (Reported) Carvedilol* (Carvedilol*), 3.125 MG ORAL EVERY 12 HOURS, (Reported) Fluticasone/Salmeterol (Advair 250-50 Diskus), 1 PUFF INH EVERY 12 HOURS, ( Reported) Furosemide* (Lasix*), 40 MG ORAL DAILY, (Reported) Lisinopril* (Zestril*), 10 MG ORAL DAILY, (Reported) Multivitamins* (Multivitamins*), 1 TAB ORAL DAILY, (Reported) Tiotropium [place]* (Spiriva*), 1 PUFF INH DAILY, (Reported) Patient History Healthcare decision maker Resuscitation status Advanced Directive on File Review of Systems ROS Narrative CONSTITUTIONAL: No weight loss, fever, chills, weakness or fatigue. HEENT: Eyes: No visual loss, blurred vision, double vision or yellow sclerae. Ears, Nose, Throat: No hearing loss, sneezing, congestion, runny nose or sore throat. SKIN: No rash or itching. CARDIOVASCULAR: No chest pain, chest pressure or chest discomfort. No palpitations, +edema RESPIRATORY: +shortness of breath, cough or sputum. GASTROINTESTINAL: No anorexia, nausea, vomiting or diarrhea. No abdominal pain or blood. NEUROLOGICAL: No headache, dizziness, syncope, paralysis, ataxia, numbness or tingling in the extremities. No change in bowel or bladder control. MUSCULOSKELETAL: No muscle, back pain, joint pain or stiffness. HEMATOLOGIC: No anemia, bleeding or bruising. LYMPHATICS: No enlarged nodes. No history of splenectomy. PSYCHIATRIC: No history of depression or anxiety. ENDOCRINOLOGIC: No reports of sweating, cold or heat intolerance. No polyuria or polydipsia. ALLERGIES: No history of asthma, hives, eczema or rhinitis. Physical Exam Physical Exam Narrative General: alert, cooperative, no distress, appears stated age Head: normocephalic, without obvious abnormality, atraumatic Eyes: conjunctivae/corneas clear. PERRL, EOM's intact Throat: lips, mucosa, and tongue normal. MMM Neck: supple, symmetrical, trachea midline, and no JVD Lungs: decreased b/l Heart: regular rate and rhythm, S1, S2 normal, no murmur, click, rub or gallop Abdomen: soft, non-tender, non-distended, bowel sounds normal; no masses or organomegaly Extremities: extremities normal, atraumatic, no cyanosis, +BLE edema Pulses: 2+ and symmetric Skin: skin color, texture, turgor normal; no rashes or lesions Neurologic: grossly normal, no focal deficits Last 24 Hour Vital Signs Date Time Temp Pulse Resp B/P (MAP) Pulse Ox O2 Delivery O2 Flow Rate FiO2 11/21/19 04:00 97.4 99 19 122/87 (99) 98 11/21/19 04:00 111 11/21/19 00:00 93 11/21/19 00:00 96.8 66 22 121/85 (97) 94 11/20/19 21:16 82 115/77 11/20/19 21:00 Nasal Cannula 2.0 11/20/19 20:03 99 Nasal Cannula 2.0 28 11/20/19 20:00 96.6 82 18 115/87 (96) 99 11/20/19 20:00 102 11/20/19 16:00 97.9 88 20 102/73 (83) 98 11/20/19 15:13 98 11/20/19 12:00 96.1 89 20 114/83 (93) 100 11/20/19 11:25 91 11/20/19 10:47 84 6/22/20 10:45 Nasal Cannula 2.0 11/20/19 10:32 97.5 82 19 121/80 99 Nasal Cannula 2.0 11/20/19 10:04 97.5 84 18 118/81 100 Nasal Cannula 2.0 11/20/19 08:14 97.5 91 17 111/87 99 Nasal Cannula 2.0 11/20/19 08:14 91 17 Nasal Cannula 2.0 99 11/20/19 08:05 102/84 11/20/19 07:35 97.5 93 20 143/89 (107) 100 Nasal Cannula 2.0 Intake and Output 11/20/19 11/21/19 19:00 07:00 Intake Total 0 ml Output Total 800 ml Balance -800 ml Intake Oral 0 ml Output Urine Total 800 ml # Voids 2 Laboratory Tests Test 11/20/19 08:00 11/20/19 08:10 11/20/19 08:50 11/20/19 23:20 White Blood Count 5.6 K/UL (4.8-10.8) Red Blood Count 5.36 M/UL (4.70-6.10) Hemoglobin 13.1 G/DL (14.2-18.0) L Hematocrit 44.9 % (42.0-52.0) Mean Corpuscular Volume 84 FL (80-99) Mean Corpuscular Hemoglobin 24.5 PG (27.0-31.0) L Mean Corpuscular Hemoglobin Concent 29.3 G/DL (32.0-36.0) L Red Cell Distribution Width 17.1 % (11.6-14.8) H Platelet Count 164 K/UL (150-450) Mean Platelet Volume 10.1 FL (6.5-10.1) Neutrophils (%) (Auto) 53.6 % (45.0-75.0) Lymphocytes (%) (Auto) 31.8 % (20.0-45.0) Monocytes (%) (Auto) 12.3 % (1.0-10.0) H Eosinophils (%) (Auto) 1.6 % (0.0-3.0) Basophils (%) (Auto) 0.7 % (0.0-2.0) Sodium Level 139 MMOL/L (136-145) Potassium Level 4.4 MMOL/L (3.5-5.1) Chloride Level 107 MMOL/L (98-107) Carbon Dioxide Level 21 MMOL/L (21-32) Anion Gap 11 mmol/L (5-15) Blood Urea Nitrogen 23 mg/dL (7-18) H Creatinine 1.7 MG/DL (0.55-1.30) H Estimat Glomerular Filtration Rate 40.3 mL/min (>60) Glucose Level 105 MG/DL (74-106) Calcium Level 8.3 MG/DL (8.5-10.1) L Total Bilirubin 1.3 MG/DL (0.2-1.0) H Direct Bilirubin 1.0 MG/DL (0.0-0.3) H Aspartate Amino Transf (AST/SGOT) 53 U/L (15-37) H Alanine Aminotransferase (ALT/SGPT) 38 U/L (12-78) Alkaline Phosphatase 297 U/L (46-116) H Troponin I 0.012 ng/mL (0.000-0.056) Pro-B-Type Natriuretic Peptide 66721 pg/mL (0-125) H Total Protein 7.1 G/DL (6.4-8.2) Albumin 3.2 G/DL (3.4-5.0) L Globulin 3.9 g/dL Albumin/Globulin Ratio 0.8 (1.0-2.7) L Thyroid Stimulating Hormone (TSH) 2.107 uiU/mL (0.358-3.740) Urine Color Yellow Yellow Urine Appearance Clear Clear Urine pH 5 (4.5-8.0) 5 (4.5-8.0) Urine Specific [place] 1.020 (1.005-1.035) 1.015 (1.005-1.035) Urine Protein 4+ (NEGATIVE) H Negative (NEGATIVE) Urine Glucose (UA) Negative (NEGATIVE) Negative (NEGATIVE) Urine Ketones Negative (NEGATIVE) Negative (NEGATIVE) Urine Blood Negative (NEGATIVE) Negative (NEGATIVE) Urine Nitrite Negative (NEGATIVE) Negative (NEGATIVE) Urine Bilirubin Negative (NEGATIVE) Negative (NEGATIVE) Urine Urobilinogen 4 MG/DL (0.0-1.0) H 4 MG/DL (0.0-1.0) H Urine Leukocyte Esterase Negative (NEGATIVE) Negative (NEGATIVE) Urine RBC 0 /HPF (0 - 0) Urine WBC 0-2 /HPF (0 - 0) Urine Squamous Epithelial Cells Few /LPF (NONE/OCC) Urine Bacteria Occasional /HPF (NONE) Urine Eosinophils None seen (NONE SEEN) Urine Random Total Protein 21 MG/DL (< 11.9) H Urine Random Sodium 49 mmol/L (20-110) Urine Creatinine 156.1 MG/DL (30.0-125.0) H Microbiology Date/Time Source Procedure Growth Status 11/20/19 08:10 Nasopharynx SARS-CoV-2 RdRp Gene Assay - Final Complete 11/20/19 08:06 Rectum Received Height (Feet): 6 Height (Inches): 0.00 Weight (Pounds): 200 Medications Current Medications Medications (Trade) Dose Ordered Sig/Kellee Route PRN Reason Start Time Stop Time Status Last Admin Dose Admin Acetaminophen (Tylenol) 650 mg Q6H PRN ORAL HERNANDEZ/Pain 1-4/T>100.4 11/20/19 13:15 12/20/19 13:14 11/20/19 21:15 Albuterol/ Ipratropium (Albuterol/ Ipratropium) 3 ml Q4H PRN HHN Shortness of Breath 11/21/19 00:30 11/26/19 00:29 Aspirin (ASA) 81 mg DAILY ORAL 11/21/19 09:00 01/05/20 08:59 Atorvastatin Calcium (Lipitor) 40 mg BEDTIME ORAL 11/20/19 21:00 02/18/20 20:59 11/20/19 21:15 Carvedilol (Coreg) 3.125 mg EVERY 12 HOURS ORAL 11/20/19 21:00 12/20/19 20:59 11/20/19 21:16 Furosemide (Lasix) 20 mg EVERY 12 HOURS ORAL 11/20/19 21:00 12/20/19 20:59 11/20/19 21:16 Heparin Sodium (Porcine) (Heparin 5000 units/ml) 5,000 units EVERY 12 HOURS SUBQ 11/20/19 21:00 01/04/20 20:59 11/20/19 21:13 Latanoprost (Xalatan) 1 drop BEDTIME BOTH EYES 11/20/19 21:00 12/20/19 20:59 11/20/19 21:16 Multivitamins (Multivitamins) 1 tab DAILY ORAL 11/21/19 09:00 12/21/19 08:59 Salmeterol Xinafoate/ Fluticasone (Advair 250/50 Diskus) 1 puffs EVERY 12 HOURS INH 11/20/19 21:00 02/18/20 20:59 11/20/19 21:16 Tiotropium [place] (Spiriva Inhaler) 1 puff DAILY INH 11/21/19 09:00 12/21/19 08:59 Trazodone HCl (Desyrel) 50 mg BEDTIME ORAL 11/21/19 00:30 12/21/19 00:29 11/21/19 01:10 Assessment/Plan Status: stable Assessment/Plan: 69y/o male with pmh CHF, COPD who presents with SOB, BLE edema, admitted for CHF exacerbation. # CHF exacerbation/ADHF - possibly 2/2 med and/or dietary noncompliance. Unknown EF - Cardiology consulted - Tele - Diuresis w/ lasix 20mg IV BID - Monitor BMP/Mg - Strict I/O's - Daily weights - Check TTE # VALERIO vs VALERIO on CKD - unknown baseline, Cr. 1.7 on admit, possibly 2/2 cardiorenal syndrmoe - Renal consulted - DIuresis as above - Avoid nephrotoxic agents # COPD - no e/o acute exacerbatiotn - Cont Advair, Spiriva - Cont duonebs - Pulm consulted DVT Prophylaxis: HSQ Code Status: Full Hospital Classification Declaration: Based on this initial evaluation, and depending on the patient's clinical course, I anticipate that this patient will require hospitalization for 2-3 days for CHF exacerbation, and close respiratory /hemodynamic monitoring. Disposition: Once the patient is stable to leave the hospital, I anticipate the patient will likely be discharged to the following environment: home with HH vs SNF I spent 71 minutes on this patient's case, and 38 minutes were dedicated to counseling and/or care coordination. Discussed with patient/family, nursing staff, cardiology regarding clinical status, treatment course, and disposition planning. Time of note may not reflect time of encounter. Gary Deleon M.D. Nov 21, 2019 07:02
[2019-11-21 07:11] LABS: INR 1.5 (0.9-1.1)
[2019-11-21 07:22] LABS: BASOPHILS % (AUTO) 1.1 % (0.0-2.0); EOSINOPHILS % (AUTO) 0.5 % (0.0-3.0); HEMATOCRIT 44.4 % (42.0-52.0); HEMOGLOBIN 12.9 G/DL (14.2-18.0); LYMPHOCYTES % (AUTO) 30.6 % (20.0-45.0); MEAN CORPUSCULAR VOLUME 84 FL (80-99); MONOCYTES % (AUTO) 14.7 % (1.0-10.0); NEUTROPHILS % (AUTO) 53.1 % (45.0-75.0); PLATELET COUNT 174 K/UL (150-450); RED BLOOD COUNT 5.26 M/UL (4.70-6.10)
--- NOTE | 2019-11-21 07:30 | NUR ---
HAND-OFF: Report given to Sparkle MELGOZA. Endorsed that patient is requesting Lasix to be changed to IV Lasix instead of PO Lasix. Patient is currently in stable condition.
[2019-11-21 07:59] LABS: CHOLESTEROL 81 MG/DL (< 200); HDL CHOLESTEROL 20 MG/DL (40-60); TRIGLYCERIDES 47 MG/DL (30-150)
[2019-11-21 08:00] VITALS: BP 135/97
[2019-11-21 08:01] LABS: ALANINE AMINOTRANSFERASE 43 U/L (12-78); ALBUMIN 3.2 G/DL (3.4-5.0); ALBUMIN/GLOBULIN RATIO 0.9 (1.0-2.7); ALKALINE PHOSPHATASE 276 U/L (46-116); AMYLASE 79 U/L (25-115); ANION GAP 10 mmol/L (5-15); ASPARTATE AMINO TRANSFERASE 56 U/L (15-37); BILIRUBIN,TOTAL 1.6 MG/DL (0.2-1.0); BLOOD UREA NITROGEN 26 mg/dL (7-18); CALCIUM 8.6 MG/DL (8.5-10.1); CARBON DIOXIDE 24 MMOL/L (21-32); CHLORIDE 107 MMOL/L (98-107); CREATININE 1.8 MG/DL (0.55-1.30); POTASSIUM 4.4 MMOL/L (3.5-5.1); SODIUM 141 MMOL/L (136-145)
[2019-11-21 08:02] LABS: BILIRUBIN,DIRECT 0.9 MG/DL (0.0-0.3)
--- NOTE | 2019-11-21 08:42 | Nephrology Progress Note ---
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 #Acute on chronic CHF exacerbation #HTN #CAD #history of MS #COPD #history of tobacco - lasix 40 IV BID - defer renal imaging for now - 2d echo - stric I&Os - daily weights - coreg .125mg BID - continue breathing tx - asa 91 - statin - monitor bmp, mag and phos daily Subjective ROS Limited/Unobtainable: No Constitutional: Reports: malaise, weakness HEENT: Denies: no symptoms, eye pain, blurred vision, tearing, double vision, ear pain, ear discharge, nose pain, nose congestion, throat pain, throat swelling, mouth pain, mouth swelling, other Genitourinary: Denies: no symptoms, burning, discharge, frequency, flank pain, hematuria, incontinence, pain, urgency, other Neurologic/Psychiatric: Denies: no symptoms, anxiety, depressed, emotional problems, headache, numbness, paresthesia, pre-existing deficit, seizure, tingling, tremors, weakness, other Subjective Remains pretty dyspneic Cr stable will switch to iv lasix + SOB no chest pain Objective Objective Last 24 Hour Vital Signs Date Time Temp Pulse Resp B/P (MAP) Pulse Ox O2 Delivery O2 Flow Rate FiO2 11/21/19 08:00 97.5 110 18 135/97 (110) 100 11/21/19 04:00 97.4 99 19 122/87 (99) 98 11/21/19 04:00 111 11/21/19 00:00 93 11/21/19 00:00 96.8 66 22 121/85 (97) 94 11/20/19 21:16 82 115/77 11/20/19 21:00 Nasal Cannula 2.0 11/20/19 20:03 99 Nasal Cannula 2.0 28 11/20/19 20:00 96.6 82 18 115/87 (96) 99 11/20/19 20:00 102 11/20/19 16:00 97.9 88 20 102/73 (83) 98 11/20/19 15:13 98 11/20/19 12:00 96.1 89 20 114/83 (93) 100 11/20/19 11:25 91 11/20/19 10:47 84 11/20/19 10:45 Nasal Cannula 2.0 11/20/19 10:32 97.5 82 19 121/80 99 Nasal Cannula 2.0 11/20/19 10:04 97.5 84 18 118/81 100 Nasal Cannula 2.0 Intake and Output 11/20/19 11/21/19 19:00 07:00 Intake Total 0 ml Output Total 800 ml 300 ml Balance -800 ml -300 ml Intake Oral 0 ml Output Urine Total 800 ml 300 ml # Voids 2 Laboratory Tests 11/20/19 08:50: Urine Color Yellow, Urine Appearance Clear, Urine pH 5, Urine Specific [place] 1.020, Urine Protein 4+H, Urine Glucose (UA) Negative, Urine Ketones Negative, Urine Blood Negative, Urine Nitrite Negative, Urine Bilirubin Negative, Urine Urobilinogen 4H, Urine Leukocyte Esterase Negative, Urine RBC 0, Urine WBC 0-2, Urine Squamous Epithelial Cells Few, Urine Bacteria Occasional 11/20/19 23:20: Urine Color Yellow, Urine Appearance Clear, Urine pH 5, Urine Specific [place] 1.015, Urine Protein Negative, Urine Glucose (UA) Negative, Urine Ketones Negative, Urine Blood Negative, Urine Nitrite Negative, Urine Bilirubin Negative , Urine Urobilinogen 4H, Urine Leukocyte Esterase Negative, Urine Eosinophils None seen, Urine Random Total Protein 21H, Urine Random Sodium 49, Urine Creatinine 156.1H 11/21/19 06:32: White Blood Count 5.0, Red Blood Count 5.26, Hemoglobin 12.9L, Hematocrit 44.4, Mean Corpuscular Volume 84, Mean Corpuscular Hemoglobin 24.5L, Mean Corpuscular Hemoglobin Concent 29.0L, Red Cell Distribution Width 17.0H, Platelet Count 174 , Mean Platelet Volume 9.7, Neutrophils (%) (Auto) 53.1, Lymphocytes (%) (Auto) 30.6, Monocytes (%) (Auto) 14.7H, Eosinophils (%) (Auto) 0.5, Basophils (%) ( Auto) 1.1, Erythrocyte Sedimentation Rate [Pending], Prothrombin Time 15.7H, Prothromb Time International Ratio 1.5H, Activated Partial Thromboplast Time 30 , Sodium Level 141, Potassium Level 4.4, Chloride Level 107, Carbon Dioxide Level 24, Anion Gap 10, Blood Urea Nitrogen 26H, Creatinine 1.8H, Estimat Glomerular Filtration Rate 45.7, Glucose Level 118H, Hemoglobin A1c 7.6H, Calcium Level 8.6, Total Bilirubin 1.6H, Direct Bilirubin 0.9H, Aspartate Amino Transf (AST/SGOT) 56H, Alanine Aminotransferase (ALT/SGPT) 43, Alkaline Phosphatase 276H, Troponin I 0.009, C-Reactive Protein, Quantitative 2.1H, Total Protein 6.7, Albumin 3.2L, Globulin 3.5, Albumin/Globulin Ratio 0.9L, Triglycerides Level 47, Cholesterol Level 81, LDL Cholesterol 52, HDL Cholesterol 20L, Cholesterol/HDL Ratio 4.1, Amylase Level 79, Lipase 207 Height (Feet): 6 Height (Inches): 0.00 Weight (Pounds): 200 General Appearance: mild distress EENT: PERRL/EOMI Neck: non-tender Cardiovascular: normal rate, regular rhythm Respiratory/Chest: crackles/rales Abdomen: normal bowel sounds, non tender, soft Extremities: moderate edema, pitting Neurologic: alert, oriented x 3 Mary Dawn M.D. Nov 21, 2019 08:42
[2019-11-21] MEDS: Heparin 5000 units/ml inj SUBQ SCH ×2 (08:47→20:25)
[2019-11-21] MEDS: Aspirin Baby 81mg ORAL SCH (08:48)
[2019-11-21] MEDS ORDERED: Lisinopril 10mg tab ORAL SCH (09:00)
[2019-11-21] MEDS ORDERED: Furosemide 40mg tab ORAL SCH (09:00)
[2019-11-21] MEDS: Wixela 250/50 Inhaler - 60 dose INH SCH ×2 (09:18→20:21)
--- NOTE | 2019-11-21 11:43 | NUR ---
*-* INSURANCE *-* ALL AVAILABLE CLINICALS HAVE BEEN FAXED TO: DANETTE WILKERSON F: [phone] Addendum: 11/22/19 at 0901 by EBENEZER CRENSHAW CM DANETTE Wilkerson Ref# [id number] #[phone] FAX#[phone]
[2019-11-21 12:00] VITALS: BP 127/99
--- NOTE | 2019-11-21 13:35 | General Progress Note ---
Assessment/Plan Problem List: (1) Chest pain ICD Codes: R07.9 - Chest pain, unspecified SNOMED: 35321181 (2) Abnormal LFTs ICD Codes: R94.5 - Abnormal results of liver function studies SNOMED: 660660741 (3) CHF exacerbation ICD Codes: I50.9 - Heart failure, unspecified SNOMED: 309127604, [id number] Status: stable Assessment/Plan: 69y/o male with pmh CHF, COPD who presents with SOB, BLE edema, admitted for CHF exacerbation. # CHF exacerbation/ADHF - possibly 2/2 med and/or dietary noncompliance. Unknown EF - Cardiology consulted - Tele - Diuresis w/ lasix 20mg IV BID - Monitor BMP/Mg - Strict I/O's - Daily weights - Check TTE # VALERIO vs VALERIO on CKD - unknown baseline, Cr. 1.7 on admit, possibly 2/2 cardiorenal syndrome - Renal consulted - DIuresis as above - Avoid nephrotoxic agents # Abnormal LFT's - f/u US - CTM CMP # COPD - no e/o acute exacerbation - Cont Advair, Spiriva - Cont duonebs - Pulm consulted DVT Prophylaxis: HSQ Code Status: Full Hospital Classification Declaration: Based on this initial evaluation, and depending on the patient's clinical course, I anticipate that this patient will require hospitalization for 2-3 days for CHF exacerbation, and close respiratory /hemodynamic monitoring. Disposition: Once the patient is stable to leave the hospital, I anticipate the patient will likely be discharged to the following environment: home with HH vs SNF I spent 41 minutes on this patient's case, and 28 minutes were dedicated to counseling and/or care coordination. Discussed with patient/family, nursing staff, cardiology regarding clinical status, treatment course, and disposition planning. Time of note may not reflect time of encounter. Subjective Date patient seen: Nov 21, 2019 ROS Limited/Unobtainable: No Allergies: Coded Allergies: No Known Allergies (Unverified , 11/20/19) Subjective feeling better compared to yesterday c/o sob on ambulation Objective Last 24 Hour Vital Signs Date Time Temp Pulse Resp B/P (MAP) Pulse Ox O2 Delivery O2 Flow Rate FiO2 11/21/19 12:00 97.9 108 20 127/99 (108) 99 11/21/19 11:18 86 11/21/19 09:00 Nasal Cannula 2.0 11/21/19 08:48 110 135/97 11/21/19 08:00 97.5 110 18 135/97 (110) 100 11/21/19 07:18 103 11/21/19 04:00 97.4 99 19 122/87 (99) 98 11/21/19 04:00 111 11/21/19 00:00 93 11/21/19 00:00 96.8 66 22 121/85 (97) 94 11/20/19 21:16 82 115/77 11/20/19 21:00 Nasal Cannula 2.0 11/20/19 20:03 99 Nasal Cannula 2.0 28 11/20/19 20:00 96.6 82 18 115/87 (96) 99 11/20/19 20:00 102 11/20/19 16:00 97.9 88 20 102/73 (83) 98 11/20/19 15:13 98 Intake and Output 11/20/19 11/21/19 19:00 07:00 Intake Total 0 ml Output Total 800 ml 300 ml Balance -800 ml -300 ml Intake Oral 0 ml Output Urine Total 800 ml 300 ml # Voids 2 Laboratory Tests 11/20/19 23:20: Urine Color Yellow, Urine Appearance Clear, Urine pH 5, Urine Specific [place] 1.015, Urine Protein Negative, Urine Glucose (UA) Negative, Urine Ketones Negative, Urine Blood Negative, Urine Nitrite Negative, Urine Bilirubin Negative , Urine Urobilinogen 4H, Urine Leukocyte Esterase Negative, Urine Eosinophils None seen, Urine Random Total Protein 21H, Urine Random Sodium 49, Urine Creatinine 156.1H 11/21/19 06:32: White Blood Count 5.0, Red Blood Count 5.26, Hemoglobin 12.9L, Hematocrit 44.4, Mean Corpuscular Volume 84, Mean Corpuscular Hemoglobin 24.5L, Mean Corpuscular Hemoglobin Concent 29.0L, Red Cell Distribution Width 17.0H, Platelet Count 174 , Mean Platelet Volume 9.7, Neutrophils (%) (Auto) 53.1, Lymphocytes (%) (Auto) 30.6, Monocytes (%) (Auto) 14.7H, Eosinophils (%) (Auto) 0.5, Basophils (%) ( Auto) 1.1, Erythrocyte Sedimentation Rate 4, Prothrombin Time 15.7H, Prothromb Time International Ratio 1.5H, Activated Partial Thromboplast Time 30, Sodium Level 141, Potassium Level 4.4, Chloride Level 107, Carbon Dioxide Level 24, Anion Gap 10, Blood Urea Nitrogen 26H, Creatinine 1.8H, Estimat Glomerular Filtration Rate 45.7, Glucose Level 118H, Hemoglobin A1c 7.6H, Calcium Level 8.6 , Total Bilirubin 1.6H, Direct Bilirubin 0.9H, Aspartate Amino Transf (AST/SGOT ) 56H, Alanine Aminotransferase (ALT/SGPT) 43, Alkaline Phosphatase 276H, Troponin I 0.009, C-Reactive Protein, Quantitative 2.1H, Total Protein 6.7, Albumin 3.2L, Globulin 3.5, Albumin/Globulin Ratio 0.9L, Triglycerides Level 47 , Cholesterol Level 81, LDL Cholesterol 52, HDL Cholesterol 20L, Cholesterol/ HDL Ratio 4.1, Amylase Level 79, Lipase 207 Height (Feet): 6 Height (Inches): 0.00 Weight (Pounds): 200 General Appearance: no apparent distress, alert Cardiovascular: normal rate, regular rhythm Respiratory/Chest: lungs clear, normal breath sounds Abdomen: non tender, soft, no mass Extremities: non-tender, normal inspection Edema: trace edema Sol Menard DO Nov 21, 2019 13:35
--- NOTE | 2019-11-21 14:41 | NUR ---
CASE MANAGEMENT:REVIEW 69 YR OLD MALE BIBA FROM STRE[facility]; SOB SINCE YESTERDAY SI: CHF. COPD 97.5 93 20 143/89 100% ON 4L/NC BUN+23 CR+1.7 TBILI+1.3 DBILI+1.0 BNP+[id number] IS: DUONEB HHN Q15M NITRO 1" X1 IV LASIX X1 CHEST XRAY COVID 19 SWAB : TO TELEMETRY IS: ASA PO QD SPIRIVA INH QD ADVAIR INH Q12 IV LASIX BID COREG PO Q12 HEPARIN SQ Q12
--- NOTE | 2019-11-21 15:34 | NUR ---
NURSE NOTES: Received report from RHONA Augustin. Pt awake, a/o x4, able to make needs known. Pt denies of any pain, no s/sx of acute distress, pt on 2L NC. mild SOB noted. IV site patent and asymptomatic, SL. Bed on lowest position, call light within reach. Will continue plan of care. Addendum: 11/21/19 at 1536 by Sparkle Morales RN TIME: 0800
--- NOTE | 2019-11-21 15:54 | Diagnostic Imaging Report ---
EXAM: ULTRASOUND US ABD Complete CLINICAL HISTORY: Abdominal discomfort. COMPARISON: None TECHNIQUE: Ultrasound examination of the abdomen includes grayscale images, and color and spectral doppler analysis. FINDINGS: The liver and spleen are homogeneous. Gallbladder is contracted. Patient is not fasting. There is suggestion of gallbladder wall thickening. Question related to underlying liver disease. Common bile duct measures 4 mm. Pancreas is well visualized. The kidneys are normal in size, shape and axis. Aorta and cava are also obscured by bowel gas. Small amount of ascites noted along with bilateral effusions. IMPRESSION: GALLBLADDER IS CONTRACTED BUT THERE IS ALSO SUGGESTION OF SOME GALLBLADDER WALL THICKENING. QUESTION PRIMARY GALLBLADDER DISEASE VERSUS SECONDARY TO UNDERLYING LIVER DISEASE. PATIENT IS NOT FOCALLY TENDER. SMALL AMOUNT OF ASCITES. BILATERAL EFFUSIONS.
--- NOTE | 2019-11-21 15:56 | Cardiology Progress Note ---
Assessment/Plan Status: stable Assessment/Plan ASSESSMENT: CHF SOB VALERIO COPD Fluid overload PLAN: Maintain diuresis transition to PO lasix Echocardiogram pending DASH diet Fluid restriction Mobilize Pulmonary toilet Outpatient stress test Subjective Cardiovascular: Reports: no symptoms Respiratory: Reports: no symptoms Gastrointestinal/Abdominal: Reports: no symptoms Genitourinary: Reports: no symptoms Subjective No acute events, no CP, stable on room air, appropriate diuresis to lasix Objective Last 24 Hour Vital Signs Date Time Temp Pulse Resp B/P (MAP) Pulse Ox O2 Delivery O2 Flow Rate FiO2 11/21/19 12:00 97.9 108 20 127/99 (108) 99 11/21/19 11:18 86 11/21/19 09:00 Nasal Cannula 2.0 11/21/19 08:48 110 135/97 11/21/19 08:00 97.5 110 18 135/97 (110) 100 11/21/19 07:18 103 11/21/19 04:00 97.4 99 19 122/87 (99) 98 11/21/19 04:00 111 11/21/19 00:00 93 11/21/19 00:00 96.8 66 22 121/85 (97) 94 11/20/19 21:16 82 115/77 11/20/19 21:00 Nasal Cannula 2.0 11/20/19 20:03 99 Nasal Cannula 2.0 28 11/20/19 20:00 96.6 82 18 115/87 (96) 99 11/20/19 20:00 102 11/20/19 16:00 97.9 88 20 102/73 (83) 98 General Appearance: no apparent distress, alert EENT: PERRL/EOMI, normal ENT inspection, TMs normal, pharynx normal Neck: non-tender, normal alignment, supple Rhythm: NSR Cardiovascular: normal peripheral pulses, normal rate, regular rhythm Respiratory/Chest: chest wall non-tender, lungs clear, normal breath sounds Abdomen: non tender, no organomegaly Extremities: normal range of motion, normal inspection, no calf tenderness 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, no motor/sensory deficits Intake and Output 11/20/19 11/21/19 19:00 07:00 Intake Total 0 ml Output Total 800 ml 300 ml Balance -800 ml -300 ml Intake Oral 0 ml Output Urine Total 800 ml 300 ml # Voids 2 Laboratory Tests Test 11/20/19 23:20 11/21/19 06:32 Urine Color Yellow Urine Appearance Clear Urine pH 5 (4.5-8.0) Urine Specific [place] 1.015 (1.005-1.035) Urine Protein Negative (NEGATIVE) Urine Glucose (UA) Negative (NEGATIVE) Urine Ketones Negative (NEGATIVE) Urine Blood Negative (NEGATIVE) Urine Nitrite Negative (NEGATIVE) Urine Bilirubin Negative (NEGATIVE) Urine Urobilinogen 4 MG/DL (0.0-1.0) H Urine Leukocyte Esterase Negative (NEGATIVE) Urine Eosinophils None seen (NONE SEEN) Urine Random Total Protein 21 MG/DL (< 11.9) H Urine Random Sodium 49 mmol/L (20-110) Urine Creatinine 156.1 MG/DL (30.0-125.0) H White Blood Count 5.0 K/UL (4.8-10.8) Red Blood Count 5.26 M/UL (4.70-6.10) Hemoglobin 12.9 G/DL (14.2-18.0) L Hematocrit 44.4 % (42.0-52.0) Mean Corpuscular Volume 84 FL (80-99) Mean Corpuscular Hemoglobin 24.5 PG (27.0-31.0) L Mean Corpuscular Hemoglobin Concent 29.0 G/DL (32.0-36.0) L Red Cell Distribution Width 17.0 % (11.6-14.8) H Platelet Count 174 K/UL (150-450) Mean Platelet Volume 9.7 FL (6.5-10.1) Neutrophils (%) (Auto) 53.1 % (45.0-75.0) Lymphocytes (%) (Auto) 30.6 % (20.0-45.0) Monocytes (%) (Auto) 14.7 % (1.0-10.0) H Eosinophils (%) (Auto) 0.5 % (0.0-3.0) Basophils (%) (Auto) 1.1 % (0.0-2.0) Erythrocyte Sedimentation Rate 4 MM/HR (0-20) Prothrombin Time 15.7 SEC (9.30-11.50) H Prothromb Time International Ratio 1.5 (0.9-1.1) H Activated Partial Thromboplast Time 30 SEC (23-33) Sodium Level 141 MMOL/L (136-145) Potassium Level 4.4 MMOL/L (3.5-5.1) Chloride Level 107 MMOL/L (98-107) Carbon Dioxide Level 24 MMOL/L (21-32) Anion Gap 10 mmol/L (5-15) Blood Urea Nitrogen 26 mg/dL (7-18) H Creatinine 1.8 MG/DL (0.55-1.30) H Estimat Glomerular Filtration Rate 45.7 mL/min (>60) Glucose Level 118 MG/DL (74-106) H Hemoglobin A1c 7.6 % (4.3-6.0) H Calcium Level 8.6 MG/DL (8.5-10.1) Total Bilirubin 1.6 MG/DL (0.2-1.0) H Direct Bilirubin 0.9 MG/DL (0.0-0.3) H Aspartate Amino Transf (AST/SGOT) 56 U/L (15-37) H Alanine Aminotransferase (ALT/SGPT) 43 U/L (12-78) Alkaline Phosphatase 276 U/L (46-116) H Troponin I 0.009 ng/mL (0.000-0.056) C-Reactive Protein, Quantitative 2.1 mg/dL (0.00-0.90) H Total Protein 6.7 G/DL (6.4-8.2) Albumin 3.2 G/DL (3.4-5.0) L Globulin 3.5 g/dL Albumin/Globulin Ratio 0.9 (1.0-2.7) L Triglycerides Level 47 MG/DL (30-150) Cholesterol Level 81 MG/DL (< 200) LDL Cholesterol 52 mg/dL (<100) HDL Cholesterol 20 MG/DL (40-60) L Cholesterol/HDL Ratio 4.1 (3.3-4.4) Amylase Level 79 U/L (25-115) Lipase 207 U/L (73-393) Microbiology Date/Time Source Procedure Growth Status 11/20/19 08:10 Nasopharynx SARS-CoV-2 RdRp Gene Assay - Final Complete 11/20/19 08:06 Rectum Received Kt Alberto MD Nov 21, 2019 15:56
[2019-11-21 16:00] VITALS: BP 107/76
--- NOTE | 2019-11-21 16:30 | Consultation ---
DATE OF CONSULTATION: 11/21/2019 PULMONARY CONSULTATION CONSULTING PHYSICIAN: Jose Villarreal MD. HISTORY OF PRESENT ILLNESS: This is a 69-year-old male with a history of CHF and COPD, came to the hospital with worsening shortness of breath and dyspnea. He also had increasing leg edema. Patient reported he ran out of his medications a few days ago. He also reports chest discomfort, but no cough and no fever. He was found to have evidence of congestive heart failure on imaging studies and admitted to the hospital for diuresis. REVIEW OF SYSTEMS: Denies any headaches, hematemesis, melena, hematochezia, night sweats, or weight loss. HOME MEDICATIONS: Reviewed reconciled in chart. PAST MEDICAL HISTORY: Notable for COPD and CHF. HOME MEDICATIONS: Aspirin, Lipitor, Coreg, Advair, Lasix, lisinopril, multivitamin, Spiriva. PHYSICAL EXAMINATION: GENERAL: Reveals a 69-year-old male. HEENT: Unremarkable. CHEST: Shows decreased breath sounds bilaterally with normal heart sounds. ABDOMEN: Soft. EXTREMITIES: There is 1+ edema. VITAL SIGNS: Blood pressure is 130/90, heart rate 110, respirations 18, his O2 sats are 96% on 2 L of oxygen. LABORATORY DATA: Lab testing shows normal CBC. BMP notable for creatinine 1.8. Total bilirubin 1.6. Coags are negative. COVID-19 rapid PCR is negative for coronavirus. IMPRESSION: 1. Decompensated congestive heart failure. 2. Hypoxemia. 3. Pulmonary edema. DISCUSSION: Admit to the hospital. Continue diuresis. Oxygen and pulmonary hygiene. We will follow as service control operator. Jose Villarreal M.D. DR: CHASTITY JOB#: [id number] CC:
--- NOTE | 2019-11-21 18:01 | Surgery Progress Note ---
Surgery Progress Note Subjective Additional Comments No acute events. States he feels better but still having some discomfort right upper quadrant. No nausea vomiting fever chills. Ultrasound noted. Labs reviewed Objective Last 24 Hour Vital Signs Date Time Temp Pulse Resp B/P (MAP) Pulse Ox O2 Delivery O2 Flow Rate FiO2 11/21/19 16:14 85 20 97 Nasal Cannula 2.0 28 88 20 94 11/21/19 16:13 94 Nasal Cannula 2.0 28 11/21/19 16:00 96.9 85 20 107/76 (86) 100 11/21/19 12:00 97.9 108 20 127/99 (108) 99 11/21/19 11:18 86 11/21/19 09:00 Nasal Cannula 2.0 11/21/19 08:48 110 135/97 11/21/19 08:00 97.5 110 18 135/97 (110) 100 11/21/19 07:18 103 11/21/19 04:00 97.4 99 19 122/87 (99) 98 11/21/19 04:00 111 11/21/19 00:00 93 11/21/19 00:00 96.8 66 22 121/85 (97) 94 11/20/19 21:16 82 115/77 11/20/19 21:00 Nasal Cannula 2.0 11/20/19 20:03 99 Nasal Cannula 2.0 28 11/20/19 20:00 96.6 82 18 115/87 (96) 99 11/20/19 20:00 102 I&O Intake and Output 11/20/19 11/21/19 19:00 07:00 Intake Total 0 ml Output Total 800 ml 300 ml Balance -800 ml -300 ml Intake Oral 0 ml Output Urine Total 800 ml 300 ml # Voids 2 Cardiovascular: RSR Respiratory: clear Abdomen: soft, non-tender, present bowel sounds, non-distended Extremities: no edema, no tenderness, no cyanosis Laboratory Tests Test 11/20/19 23:20 11/21/19 06:32 Urine Color Yellow Urine Appearance Clear Urine pH 5 (4.5-8.0) Urine Specific [place] 1.015 (1.005-1.035) Urine Protein Negative (NEGATIVE) Urine Glucose (UA) Negative (NEGATIVE) Urine Ketones Negative (NEGATIVE) Urine Blood Negative (NEGATIVE) Urine Nitrite Negative (NEGATIVE) Urine Bilirubin Negative (NEGATIVE) Urine Urobilinogen 4 MG/DL (0.0-1.0) H Urine Leukocyte Esterase Negative (NEGATIVE) Urine Eosinophils None seen (NONE SEEN) Urine Random Total Protein 21 MG/DL (< 11.9) H Urine Random Sodium 49 mmol/L (20-110) Urine Creatinine 156.1 MG/DL (30.0-125.0) H White Blood Count 5.0 K/UL (4.8-10.8) Red Blood Count 5.26 M/UL (4.70-6.10) Hemoglobin 12.9 G/DL (14.2-18.0) L Hematocrit 44.4 % (42.0-52.0) Mean Corpuscular Volume 84 FL (80-99) Mean Corpuscular Hemoglobin 24.5 PG (27.0-31.0) L Mean Corpuscular Hemoglobin Concent 29.0 G/DL (32.0-36.0) L Red Cell Distribution Width 17.0 % (11.6-14.8) H Platelet Count 174 K/UL (150-450) Mean Platelet Volume 9.7 FL (6.5-10.1) Neutrophils (%) (Auto) 53.1 % (45.0-75.0) Lymphocytes (%) (Auto) 30.6 % (20.0-45.0) Monocytes (%) (Auto) 14.7 % (1.0-10.0) H Eosinophils (%) (Auto) 0.5 % (0.0-3.0) Basophils (%) (Auto) 1.1 % (0.0-2.0) Erythrocyte Sedimentation Rate 4 MM/HR (0-20) Prothrombin Time 15.7 SEC (9.30-11.50) H Prothromb Time International Ratio 1.5 (0.9-1.1) H Activated Partial Thromboplast Time 30 SEC (23-33) Sodium Level 141 MMOL/L (136-145) Potassium Level 4.4 MMOL/L (3.5-5.1) Chloride Level 107 MMOL/L (98-107) Carbon Dioxide Level 24 MMOL/L (21-32) Anion Gap 10 mmol/L (5-15) Blood Urea Nitrogen 26 mg/dL (7-18) H Creatinine 1.8 MG/DL (0.55-1.30) H Estimat Glomerular Filtration Rate 45.7 mL/min (>60) Glucose Level 118 MG/DL (74-106) H Hemoglobin A1c 7.6 % (4.3-6.0) H Calcium Level 8.6 MG/DL (8.5-10.1) Total Bilirubin 1.6 MG/DL (0.2-1.0) H Direct Bilirubin 0.9 MG/DL (0.0-0.3) H Aspartate Amino Transf (AST/SGOT) 56 U/L (15-37) H Alanine Aminotransferase (ALT/SGPT) 43 U/L (12-78) Alkaline Phosphatase 276 U/L (46-116) H Troponin I 0.009 ng/mL (0.000-0.056) C-Reactive Protein, Quantitative 2.1 mg/dL (0.00-0.90) H Total Protein 6.7 G/DL (6.4-8.2) Albumin 3.2 G/DL (3.4-5.0) L Globulin 3.5 g/dL Albumin/Globulin Ratio 0.9 (1.0-2.7) L Triglycerides Level 47 MG/DL (30-150) Cholesterol Level 81 MG/DL (< 200) LDL Cholesterol 52 mg/dL (<100) HDL Cholesterol 20 MG/DL (40-60) L Cholesterol/HDL Ratio 4.1 (3.3-4.4) Amylase Level 79 U/L (25-115) Lipase 207 U/L (73-393) Plan Problems: (1) CHF exacerbation (2) Chest pain (3) Abnormal LFTs Assessment & Plan: 61-year-old male elevated LFTs CHF shortness of breath worse with deep inspiration. Positive Horvath's or upper quadrant tender on palpation respiratory alert Ultrasound abdomen ordered Trend LFTs We will follow with recommendations thank you let me participate in patient's care Likely some intrinsic liver disease Gallbladder noted on ultrasound Tenderness is improved Agree with likely secondary to underlying liver disease We will follow with examination The liver and spleen are homogeneous. Gallbladder is contracted. Patient is not fasting. There is suggestion of gallbladder wall thickening. Question related to underlying liver disease. Common bile duct measures 4 mm. Pancreas is well visualized. The kidneys are normal in size, shape and axis. Aorta and cava are also obscured by bowel gas. Small amount of ascites noted along with bilateral effusions. IMPRESSION: GALLBLADDER IS CONTRACTED BUT THERE IS ALSO SUGGESTION OF SOME GALLBLADDER WALL THICKENING. QUESTION PRIMARY GALLBLADDER DISEASE VERSUS SECONDARY TO UNDERLYING LIVER DISEASE. PATIENT IS NOT FOCALLY TENDER. SMALL AMOUNT OF ASCITES. BILATERAL EFFUSIONS. Arsh Soto Nov 21, 2019 18:01
--- NOTE | 2019-11-21 19:25 | NUR ---
HAND-OFF: Report given to RHONA Augustin. Pt in stable condition, endorsed plan of care.
--- NOTE | 2019-11-21 19:30 | NUR ---
NURSE NOTES: Report received from Sparkle MELGOZA. Patient is noted to be awake and alert x 4. Patient is noted to be on 2 liters of oxygen. patient denies chest pain and shortness of breath at this time. Patient is noted to have left AC 20 chevy IV access. Patient noted to have urinals at bedside due to frequent voiding due to patient being on Lasix. patient has no complaints at this time. Endorsed that patient is able to ambulate with minimal assistance. Bed locked, in lowest position, call light in reach. Will continue to follow plan of care.
[2019-11-21 20:00] VITALS: BP 118/88
[2019-11-21] MEDS: Atorvastatin 20mg tab ORAL SCH (20:16)
[2019-11-21] MEDS: Latanoprost 0.005% Opth 2.5ml Soln BOTH EYES SCH (20:21)
[2019-11-22] VITALS: BP 121/85
[2019-11-22 04:00] VITALS: BP 107/78
[2019-11-22 07:26] LABS: PHOSPHORUS 3.3 MG/DL (2.5-4.9)
--- NOTE | 2019-11-22 07:40 | NUR ---
HAND-OFF: Report given to Basilia RN. Endorsed that patient is requesting medications to assist with bowl movement. Patient currently in stable condition.
--- NOTE | 2019-11-22 07:41 | NUR ---
NURSE NOTES: Received patient in bed awake. O2 via NC in place. Shortness of breath noted. IV line intact and patent. HOB elevated. Bed locked in lowest position. Call light within reach. Will continue plan of care.
[2019-11-22 07:50] VITALS: BP 122/97
[2019-11-22] MEDS: Wixela 250/50 Inhaler - 60 dose INH SCH ×2 (08:46→21:12)
[2019-11-22] MEDS: Aspirin Baby 81mg ORAL SCH (08:46)
[2019-11-22] MEDS: Heparin 5000 units/ml inj SUBQ SCH ×2 (08:48→21:06)
--- NOTE | 2019-11-22 08:58 | NUR ---
CASE MANAGEMENT:REVIEW 11/22/19 SI: CHF. HYPOXEMIA. PULMONARY EDEMA COPD. FLUID OVERLOAD 96.7 64 20 122/97 98% ON 2L/NC IS: ASA PO QD MVI PO QD SPIRIVA INH QD IV LASIX Q12 COREG PO Q12 ADVAIR INH Q12 HEPARIN SQ Q12 : TELEMETRY STATUS DCP: WILL DC [facility] PLAN: FLUID RESTRICTION TRANSITION TO PO LASIX PULMONARY TOILET
--- NOTE | 2019-11-22 09:26 | General Progress Note ---
Assessment/Plan Problem List: (1) Chest pain ICD Codes: R07.9 - Chest pain, unspecified SNOMED: 26739708 (2) Abnormal LFTs ICD Codes: R94.5 - Abnormal results of liver function studies SNOMED: 702976174 (3) CHF exacerbation ICD Codes: I50.9 - Heart failure, unspecified SNOMED: 643923639, [id number] Status: stable Assessment/Plan: 69y/o male with pmh CHF, COPD who presents with SOB, BLE edema, admitted for CHF exacerbation. # CHF exacerbation/ADHF - possibly 2/2 med and/or dietary noncompliance. Unknown EF - Cardiology consulted - Tele - Diuresis w/ lasix 40mg IV BID - Monitor BMP/Mg - Strict I/O's - Daily weights - Check TTE # VALERIO vs VALERIO on CKD - unknown baseline, Cr. 1.7 on admit, possibly 2/2 cardiorenal syndrome - Renal consulted - DIuresis as above - Avoid nephrotoxic agents # Abnormal LFT's - f/u US: Gallbladder wall thickening -General surgery following, appreciate recs - CTM CMP # COPD - no e/o acute exacerbation - Cont Advair, Spiriva - Cont duonebs - Pulm consulted DVT Prophylaxis: HSQ Code Status: Full Hospital Classification Declaration: Based on this initial evaluation, and depending on the patient's clinical course, I anticipate that this patient will require hospitalization for 2-3 days for CHF exacerbation, and close respiratory /hemodynamic monitoring. Disposition: Once the patient is stable to leave the hospital, I anticipate the patient will likely be discharged to the following environment: home with HH vs SNF I spent 41 minutes on this patient's case, and 28 minutes were dedicated to counseling and/or care coordination. Discussed with patient/family, nursing staff, cardiology regarding clinical status, treatment course, and disposition planning. Time of note may not reflect time of encounter. Subjective Date patient seen: Nov 22, 2019 Allergies: Coded Allergies: No Known Allergies (Unverified , 11/20/19) Subjective feels better No acute events overnight Mild abdominal pain, nontender on exam Objective Last 24 Hour Vital Signs Date Time Temp Pulse Resp B/P (MAP) Pulse Ox O2 Delivery O2 Flow Rate FiO2 11/22/19 08:45 64 122/97 11/22/19 07:50 96.7 64 20 122/97 (105) 98 11/22/19 04:00 97.7 93 19 107/78 (88) 99 11/22/19 04:00 102 11/22/19 00:00 99 11/22/19 00:00 98.1 91 22 121/85 (97) 96 11/21/19 21:00 Nasal Cannula 2.0 11/21/19 20:24 105 118/92 11/21/19 20:02 95 Nasal Cannula 2.0 28 11/21/19 20:02 97 20 95 2.0 28 11/21/19 20:00 103 11/21/19 20:00 97.9 94 20 118/88 (98) 96 11/21/19 16:14 85 20 97 Nasal Cannula 2.0 28 88 20 94 11/21/19 16:13 94 Nasal Cannula 2.0 28 11/21/19 16:00 96.9 85 20 107/76 (86) 100 11/21/19 15:48 96 11/21/19 12:00 97.9 108 20 127/99 (108) 99 11/21/19 11:18 86 Intake and Output 11/21/19 11/22/19 19:00 07:00 Intake Total 740 ml 360 ml Output Total 2250 ml 800 ml Balance -1510 ml -440 ml Intake Oral 740 ml 360 ml Output Urine Total 2250 ml 800 ml # Voids 3 Laboratory Tests 11/22/19 05:50: Phosphorus Level 3.3, Magnesium Level 1.9 Height (Feet): 6 Height (Inches): 0.00 Weight (Pounds): 190 Objective GENERAL: No acute distress, appears comfortable, alert HEENT: NCAT, non-icteric eyes, pupils PERRLA Neck: No cervical lymphadenopathy, trachea midline CV: Regular rate and rhythm, no murmurs rubs or gallops RESP: Clear to auscultation bilaterally, no wheezes/rhonchi/crackles ABD: soft, non-distended, no TTP EXT: Normal muscle tone, +5/5 muscle strength, trace edema bilaterally NEURO: No obvious deficits, alert and oriented x3 Sol Menard 24, 2020 09:26
[2019-11-22 09:51] LABS: ALANINE AMINOTRANSFERASE 41 U/L (12-78); ALBUMIN 3.1 G/DL (3.4-5.0); ALBUMIN/GLOBULIN RATIO 0.9 (1.0-2.7); ALKALINE PHOSPHATASE 266 U/L (46-116); ANION GAP 16 mmol/L (5-15); ASPARTATE AMINO TRANSFERASE 45 U/L (15-37); BILIRUBIN,TOTAL 1.7 MG/DL (0.2-1.0); BLOOD UREA NITROGEN 36 mg/dL (7-18); CALCIUM 8.5 MG/DL (8.5-10.1); CARBON DIOXIDE 19 MMOL/L (21-32); CHLORIDE 106 MMOL/L (98-107); CREATININE 1.8 MG/DL (0.55-1.30); POTASSIUM 4.1 MMOL/L (3.5-5.1); SODIUM 141 MMOL/L (136-145)
--- NOTE | 2019-11-22 09:51 | Pulmonology Progress Note ---
Subjective ROS Limited/Unobtainable: No Interval Events: Feeling better Constitutional: Reports: no symptoms HEENT: Repors: no symptoms Respiratory: Reports: no symptoms Cardiovascular: Reports: no symptoms Gastrointestinal/Abdominal: Reports: no symptoms Allergies: Coded Allergies: No Known Allergies (Unverified , 11/20/19) Objective Last 24 Hour Vital Signs Date Time Temp Pulse Resp B/P (MAP) Pulse Ox O2 Delivery O2 Flow Rate FiO2 11/22/19 08:45 64 122/97 11/22/19 07:50 96.7 64 20 122/97 (105) 98 11/22/19 04:00 97.7 93 19 107/78 (88) 99 11/22/19 04:00 102 11/22/19 00:00 99 11/22/19 00:00 98.1 91 22 121/85 (97) 96 11/21/19 21:00 Nasal Cannula 2.0 11/21/19 20:24 105 118/92 11/21/19 20:02 95 Nasal Cannula 2.0 28 11/21/19 20:02 97 20 95 2.0 28 11/21/19 20:00 103 11/21/19 20:00 97.9 94 20 118/88 (98) 96 11/21/19 16:14 85 20 97 Nasal Cannula 2.0 28 88 20 94 11/21/19 16:13 94 Nasal Cannula 2.0 28 11/21/19 16:00 96.9 85 20 107/76 (86) 100 11/21/19 15:48 96 11/21/19 12:00 97.9 108 20 127/99 (108) 99 11/21/19 11:18 86 Intake and Output 11/21/19 11/22/19 19:00 07:00 Intake Total 740 ml 360 ml Output Total 2250 ml 800 ml Balance -1510 ml -440 ml Intake Oral 740 ml 360 ml Output Urine Total 2250 ml 800 ml # Voids 3 General Appearance: no acute distress HEENT: normocephalic Respiratory: chest wall non-tender, lungs clear Cardiovascular: normal peripheral pulses, normal rate Abdomen: normal bowel sounds Microbiology Date/Time Source Procedure Growth Status 11/20/19 08:10 Nasopharynx SARS-CoV-2 RdRp Gene Assay - Final Complete 11/20/19 08:06 Nasal Nares MRSA Culture - Final NO METHICILLIN RESISTANT STAPH AUREUS... Complete 11/20/19 08:06 Rectum VRE Culture - Final NO VANCOMYCIN RESISTANT ENTEROCOCCUS ... Complete 11/20/19 08:00 Rectum - Final NO CARBAPENEM-RESISTANT ENTEROBACTERI... Complete Laboratory Tests 11/22/19 05:50: Sodium Level [Pending], Potassium Level [Pending], Chloride Level [Pending], Carbon Dioxide Level [Pending], Blood Urea Nitrogen [Pending], Creatinine [ Pending], Estimat Glomerular Filtration Rate [Pending], Glucose Level [Pending] , Calcium Level [Pending], Phosphorus Level 3.3, Magnesium Level 1.9, Total Bilirubin [Pending], Aspartate Amino Transf (AST/SGOT) [Pending], Alanine Aminotransferase (ALT/SGPT) [Pending], Alkaline Phosphatase [Pending], Total Protein [Pending], Albumin [Pending], Globulin [Pending] Current Medications Medications (Trade) Dose Ordered Sig/Kellee Route PRN Reason Start Time Stop Time Status Last Admin Dose Admin Acetaminophen (Tylenol) 650 mg Q6H PRN ORAL HERNANDEZ/Pain 1-4/T>100.4 11/20/19 13:15 12/20/19 13:14 11/21/19 21:07 Albuterol/ Ipratropium (Albuterol/ Ipratropium) 3 ml Q4H PRN HHN Shortness of Breath 11/21/19 00:30 11/26/19 00:29 Aspirin (ASA) 81 mg DAILY ORAL 11/21/19 09:00 01/05/20 08:59 11/22/19 08:46 Atorvastatin Calcium (Lipitor) 40 mg BEDTIME ORAL 11/20/19 21:00 02/18/20 20:59 11/21/19 20:16 Carvedilol (Coreg) 3.125 mg EVERY 12 HOURS ORAL 11/20/19 21:00 12/20/19 20:59 11/22/19 08:45 Furosemide (Lasix) 40 mg BID IV 11/21/19 09:00 12/21/19 08:59 11/22/19 08:46 Heparin Sodium (Porcine) (Heparin 5000 units/ml) 5,000 units EVERY 12 HOURS SUBQ 11/20/19 21:00 01/04/20 20:59 11/22/19 08:48 Latanoprost (Xalatan) 1 drop BEDTIME BOTH EYES 11/20/19 21:00 12/20/19 20:59 11/21/19 20:21 Multivitamins (Multivitamins) 1 tab DAILY ORAL 11/21/19 09:00 12/21/19 08:59 11/22/19 08:45 Salmeterol Xinafoate/ Fluticasone (Advair 250/50 Diskus) 1 puffs EVERY 12 HOURS INH 11/20/19 21:00 02/18/20 20:59 11/22/19 08:46 Tiotropium Victor (Spiriva Inhaler) 1 puff DAILY INH 11/21/19 09:00 12/21/19 08:59 11/22/19 08:46 Trazodone HCl (Desyrel) 50 mg BEDTIME ORAL 11/21/19 00:30 12/21/19 00:29 11/21/19 20:21 Assessment/Plan Assessment/Plan IMPRESSION: 1. Decompensated congestive heart failure. 2. Hypoxemia. 3. Pulmonary edema. DISCUSSION: Continue diuresis. Oxygen and pulmonary hygiene. 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 Romeo Jeffers Omar Syed MD Nov 22, 2019 09:51
[2019-11-22] MEDS: Docusate 100mg cap ORAL SCH ×2 (11:09→17:50)
[2019-11-22 11:55] VITALS: BP 120/61
--- NOTE | 2019-11-22 12:12 | NUR ---
NURSE NOTES: BUN [address] George, awaiting response.
[2019-11-22] MEDS: Albuterol/Ipratropium 3ml neb HHN PRN ×2 (12:50→17:39)
--- NOTE | 2019-11-22 13:15 | Cardiology Progress Note ---
Assessment/Plan Status: stable, progressing Assessment/Plan ASSESSMENT: CHF SOB VALERIO COPD Fluid overload PLAN: Maintain diuresis transition to PO lasix Echocardiogram with severe systolic dysfunction and severe PAH/TR/MR Recommend life vest -> ICD at later date DASH diet Fluid restriction Mobilize Pulmonary toilet Outpatient stress test Increase coreg to 6.25 BID Start aldactone when creatinine <1.5 Start lisinopril 5 mg when creatinine <1.5 Subjective Cardiovascular: Reports: no symptoms Respiratory: Reports: no symptoms Gastrointestinal/Abdominal: Reports: no symptoms Genitourinary: Reports: no symptoms Subjective No acute events, no CP, stable on room air, appropriate diuresis to lasix Objective Last 24 Hour Vital Signs Date Time Temp Pulse Resp B/P (MAP) Pulse Ox O2 Delivery O2 Flow Rate FiO2 11/22/19 12:51 86 20 99 Nasal Cannula 2.0 28 84 20 96 11/22/19 11:55 98.6 81 19 120/61 (80) 96 11/22/19 09:01 97 Nasal Cannula 2.0 28 11/22/19 09:01 68 20 97 2.0 28 11/22/19 09:00 Nasal Cannula 2.0 11/22/19 08:45 64 122/97 11/22/19 08:00 98 11/22/19 07:50 96.7 64 20 122/97 (105) 98 11/22/19 04:00 97.7 93 19 107/78 (88) 99 11/22/19 04:00 102 11/22/19 00:00 99 11/22/19 00:00 98.1 91 22 121/85 (97) 96 11/21/19 21:00 Nasal Cannula 2.0 11/21/19 20:24 105 118/92 11/21/19 20:02 95 Nasal Cannula 2.0 28 11/21/19 20:02 97 20 95 2.0 28 11/21/19 20:00 103 11/21/19 20:00 97.9 94 20 118/88 (98) 96 11/21/19 16:14 85 20 97 Nasal Cannula 2.0 28 88 20 94 11/21/19 16:13 94 Nasal Cannula 2.0 28 11/21/19 16:00 96.9 85 20 107/76 (86) 100 11/21/19 15:48 96 General Appearance: no apparent distress, alert EENT: PERRL/EOMI Neck: normal alignment, supple, normal inspection, no JVD Rhythm: NSR Cardiovascular: normal peripheral pulses, normal rate, regular rhythm Respiratory/Chest: chest wall non-tender, lungs clear Abdomen: normal bowel sounds, non tender, no organomegaly Extremities: normal range of motion, non-tender, normal inspection 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, no motor/sensory deficits Intake and Output 11/21/19 11/22/19 19:00 07:00 Intake Total 740 ml 360 ml Output Total 2250 ml 800 ml Balance -1510 ml -440 ml Intake Oral 740 ml 360 ml Output Urine Total 2250 ml 800 ml # Voids 3 Laboratory Tests Test 11/22/19 05:50 Sodium Level 141 MMOL/L (136-145) Potassium Level 4.1 MMOL/L (3.5-5.1) Chloride Level 106 MMOL/L (98-107) Carbon Dioxide Level 19 MMOL/L (21-32) L Anion Gap 16 mmol/L (5-15) H Blood Urea Nitrogen 36 mg/dL (7-18) H Creatinine 1.8 MG/DL (0.55-1.30) H Estimat Glomerular Filtration Rate 45.7 mL/min (>60) Glucose Level 163 MG/DL (74-106) H Calcium Level 8.5 MG/DL (8.5-10.1) Phosphorus Level 3.3 MG/DL (2.5-4.9) Magnesium Level 1.9 MG/DL (1.8-2.4) Total Bilirubin 1.7 MG/DL (0.2-1.0) H Direct Bilirubin 1.0 MG/DL (0.0-0.3) H Aspartate Amino Transf (AST/SGOT) 45 U/L (15-37) H Alanine Aminotransferase (ALT/SGPT) 41 U/L (12-78) Alkaline Phosphatase 266 U/L (46-116) H Total Protein 6.7 G/DL (6.4-8.2) Albumin 3.1 G/DL (3.4-5.0) L Globulin 3.6 g/dL Albumin/Globulin Ratio 0.9 (1.0-2.7) L Microbiology Date/Time Source Procedure Growth Status 11/20/19 08:10 Nasopharynx SARS-CoV-2 RdRp Gene Assay - Final Complete 11/20/19 08:06 Nasal Nares MRSA Culture - Final NO METHICILLIN RESISTANT STAPH AUREUS... Complete 11/20/19 08:06 Rectum VRE Culture - Final NO VANCOMYCIN RESISTANT ENTEROCOCCUS ... Complete 11/20/19 08:00 Rectum - Final NO CARBAPENEM-RESISTANT ENTEROBACTERI... Complete Kt Alberto MD Nov 22, 2019 13:15
--- NOTE | 2019-11-22 13:20 | Nephrology Progress Note ---
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 #Acute on chronic CHF exacerbation #HTN #CAD #history of [place] #COPD #history of tobacco - lasix 40 IV BID - defer renal imaging for now - stric I&Os - daily weights - coreg .125mg BID - continue breathing tx - asa 91 - statin - monitor bmp, mag and phos daily Subjective ROS Limited/Unobtainable: No Constitutional: Reports: weakness HEENT: Denies: no symptoms, eye pain, blurred vision, tearing, double vision, ear pain, ear discharge, nose pain, nose congestion, throat pain, throat swelling, mouth pain, mouth swelling, other Genitourinary: Denies: no symptoms, burning, discharge, frequency, flank pain, hematuria, incontinence, pain, urgency, other Neurologic/Psychiatric: Denies: no symptoms, anxiety, depressed, emotional problems, headache, numbness, paresthesia, pre-existing deficit, seizure, tingling, tremors, weakness, other Subjective Breathing much improved on NC Cr stable no chest pain diuressing well Objective Objective Last 24 Hour Vital Signs Date Time Temp Pulse Resp B/P (MAP) Pulse Ox O2 Delivery O2 Flow Rate FiO2 11/22/19 12:51 86 20 99 Nasal Cannula 2.0 28 84 20 96 11/22/19 11:55 98.6 81 19 120/61 (80) 96 11/22/19 09:01 97 Nasal Cannula 2.0 28 11/22/19 09:01 68 20 97 2.0 28 11/22/19 09:00 Nasal Cannula 2.0 11/22/19 08:45 64 122/97 11/22/19 08:00 98 11/22/19 07:50 96.7 64 20 122/97 (105) 98 11/22/19 04:00 97.7 93 19 107/78 (88) 99 11/22/19 04:00 102 11/22/19 00:00 99 11/22/19 00:00 98.1 91 22 121/85 (97) 96 11/21/19 21:00 Nasal Cannula 2.0 11/21/19 20:24 105 118/92 11/21/19 20:02 95 Nasal Cannula 2.0 28 11/21/19 20:02 97 20 95 2.0 28 11/21/19 20:00 103 11/21/19 20:00 97.9 94 20 118/88 (98) 96 11/21/19 16:14 85 20 97 Nasal Cannula 2.0 28 88 20 94 11/21/19 16:13 94 Nasal Cannula 2.0 28 11/21/19 16:00 96.9 85 20 107/76 (86) 100 11/21/19 15:48 96 Intake and Output 11/21/19 11/22/19 19:00 07:00 Intake Total 740 ml 360 ml Output Total 2250 ml 800 ml Balance -1510 ml -440 ml Intake Oral 740 ml 360 ml Output Urine Total 2250 ml 800 ml # Voids 3 Laboratory Tests 11/22/19 05:50: Sodium Level 141, Potassium Level 4.1, Chloride Level 106, Carbon Dioxide Level 19L, Anion Gap 16H, Blood Urea Nitrogen 36H, Creatinine 1.8H, Estimat Glomerular Filtration Rate 45.7, Glucose Level 163H, Calcium Level 8.5, Phosphorus Level 3.3, Magnesium Level 1.9, Total Bilirubin 1.7H, Direct Bilirubin 1.0H, Aspartate Amino Transf (AST/SGOT) 45H, Alanine Aminotransferase (ALT/SGPT) 41, Alkaline Phosphatase 266H, Total Protein 6.7, Albumin 3.1L, Globulin 3.6, Albumin/Globulin Ratio 0.9L Height (Feet): 6 Height (Inches): 0.00 Weight (Pounds): 190 Mary Dawn M.D. Nov 22, 2019 13:20
--- NOTE | 2019-11-22 14:45 | Surgery Progress Note ---
Surgery Progress Note Subjective Symptoms: improved, tolerating diet, voiding well, passing flatus, pain decreased Objective Last 24 Hour Vital Signs Date Time Temp Pulse Resp B/P (MAP) Pulse Ox O2 Delivery O2 Flow Rate FiO2 11/22/19 12:51 86 20 99 Nasal Cannula 2.0 28 84 20 96 11/22/19 12:00 95 11/22/19 11:55 98.6 81 19 120/61 (80) 96 11/22/19 09:01 97 Nasal Cannula 2.0 28 11/22/19 09:01 68 20 97 2.0 28 11/22/19 09:00 Nasal Cannula 2.0 11/22/19 08:45 64 122/97 11/22/19 08:00 98 11/22/19 07:50 96.7 64 20 122/97 (105) 98 11/22/19 04:00 97.7 93 19 107/78 (88) 99 11/22/19 04:00 102 11/22/19 00:00 99 11/22/19 00:00 98.1 91 22 121/85 (97) 96 11/21/19 21:00 Nasal Cannula 2.0 11/21/19 20:24 105 118/92 11/21/19 20:02 95 Nasal Cannula 2.0 28 11/21/19 20:02 97 20 95 2.0 28 11/21/19 20:00 103 11/21/19 20:00 97.9 94 20 118/88 (98) 96 11/21/19 16:14 85 20 97 Nasal Cannula 2.0 28 88 20 94 11/21/19 16:13 94 Nasal Cannula 2.0 28 11/21/19 16:00 96.9 85 20 107/76 (86) 100 11/21/19 15:48 96 I&O Intake and Output 11/21/19 11/22/19 19:00 07:00 Intake Total 740 ml 360 ml Output Total 2250 ml 800 ml Balance -1510 ml -440 ml Intake Oral 740 ml 360 ml Output Urine Total 2250 ml 800 ml # Voids 3 Cardiovascular: RSR Respiratory: clear Abdomen: soft, non-tender, present bowel sounds, non-distended Extremities: no edema, no tenderness, no cyanosis Laboratory Tests Test 11/22/19 05:50 Sodium Level 141 MMOL/L (136-145) Potassium Level 4.1 MMOL/L (3.5-5.1) Chloride Level 106 MMOL/L (98-107) Carbon Dioxide Level 19 MMOL/L (21-32) L Anion Gap 16 mmol/L (5-15) H Blood Urea Nitrogen 36 mg/dL (7-18) H Creatinine 1.8 MG/DL (0.55-1.30) H Estimat Glomerular Filtration Rate 45.7 mL/min (>60) Glucose Level 163 MG/DL (74-106) H Calcium Level 8.5 MG/DL (8.5-10.1) Phosphorus Level 3.3 MG/DL (2.5-4.9) Magnesium Level 1.9 MG/DL (1.8-2.4) Total Bilirubin 1.7 MG/DL (0.2-1.0) H Direct Bilirubin 1.0 MG/DL (0.0-0.3) H Aspartate Amino Transf (AST/SGOT) 45 U/L (15-37) H Alanine Aminotransferase (ALT/SGPT) 41 U/L (12-78) Alkaline Phosphatase 266 U/L (46-116) H Total Protein 6.7 G/DL (6.4-8.2) Albumin 3.1 G/DL (3.4-5.0) L Globulin 3.6 g/dL Albumin/Globulin Ratio 0.9 (1.0-2.7) L Plan Problems: (1) CHF exacerbation (2) Chest pain (3) Abnormal LFTs Assessment & Plan: 61-year-old male elevated LFTs CHF shortness of breath worse with deep inspiration. Positive Horvath's or upper quadrant tender on palpation respiratory alert Ultrasound abdomen ordered Trend LFTs We will follow with recommendations thank you let me participate in patient's care Likely some intrinsic liver disease Gallbladder noted on ultrasound Tenderness is improved Agree with likely secondary to underlying liver disease We will follow with examination The liver and spleen are homogeneous. Gallbladder is contracted. Patient is not fasting. There is suggestion of gallbladder wall thickening. Question related to underlying liver disease. Common bile duct measures 4 mm. Pancreas is well visualized. The kidneys are normal in size, shape and axis. Aorta and cava are also obscured by bowel gas. Small amount of ascites noted along with bilateral effusions. IMPRESSION: GALLBLADDER IS CONTRACTED BUT THERE IS ALSO SUGGESTION OF SOME GALLBLADDER WALL THICKENING. QUESTION PRIMARY GALLBLADDER DISEASE VERSUS SECONDARY TO UNDERLYING LIVER DISEASE. PATIENT IS NOT FOCALLY TENDER. SMALL AMOUNT OF ASCITES. BILATERAL EFFUSIONS. Arsh Soto Nov 22, 2019 14:45
--- NOTE | 2019-11-22 15:59 | NUR ---
*-* INSURANCE *-* UPDATED CLINICALS AND REVIEWS HAVE BEEN FAXED TO: [facility] Ref# [id number] #[phone] FAX#[phone]
[2019-11-22 16:00] VITALS: BP 114/83
--- NOTE | 2019-11-22 16:49 | NUR ---
NURSE NOTES: [facility]
--- NOTE | 2019-11-22 19:30 | NUR ---
NURSE NOTES: Patient received from Basilia RN. Patient is in stable condition. Noted Shortness of Breath On oxygen via Nasal Cannula @ 2l/min. Alert and oriented x4. IV site patent at Left AC 20G saline locked. Bed is low and locked. Vital signs stable. Call light within reach. Will continue plan of care.
[2019-11-22 20:00] VITALS: BP 130/91
[2019-11-22] MEDS: Atorvastatin 20mg tab ORAL SCH (21:05)
[2019-11-22] MEDS: Latanoprost 0.005% Opth 2.5ml Soln BOTH EYES SCH (21:05)
[2019-11-22] MEDS: Carvedilol 6.25mg Tab ORAL SCH (21:05)
[2019-11-22] MEDS: TraZODone 50mg tab ORAL SCH (21:05)
[2019-11-22] MEDS ORDERED: Fleet's Enema 133ml RECTAL SCH (21:11)
[2019-11-22] MEDS ORDERED: Milk of Magnesia 30ml Ud ORAL PRN (21:11)
[2019-11-23] VITALS: BP 113/77
[2019-11-23 04:00] VITALS: BP 109/72
[2019-11-23 05:08] LABS: BASOPHILS % (AUTO) 1.2 % (0.0-2.0); EOSINOPHILS % (AUTO) 0.7 % (0.0-3.0); HEMATOCRIT 45.2 % (42.0-52.0); HEMOGLOBIN 13.4 G/DL (14.2-18.0); LYMPHOCYTES % (AUTO) 39.1 % (20.0-45.0); MEAN CORPUSCULAR VOLUME 82 FL (80-99); MONOCYTES % (AUTO) 10.5 % (1.0-10.0); NEUTROPHILS % (AUTO) 48.5 % (45.0-75.0); PLATELET COUNT 160 K/UL (150-450); RED CELL DISTRIBUTION WIDTH 16.6 % (11.6-14.8); WHITE BLOOD COUNT 6.5 K/UL (4.8-10.8)
[2019-11-23 06:19] LABS: ALANINE AMINOTRANSFERASE 43 U/L (12-78); ALBUMIN 3.4 G/DL (3.4-5.0); ALBUMIN/GLOBULIN RATIO 0.9 (1.0-2.7); ALKALINE PHOSPHATASE 313 U/L (46-116); ANION GAP 12 mmol/L (5-15); ASPARTATE AMINO TRANSFERASE 48 U/L (15-37); BILIRUBIN,TOTAL 1.5 MG/DL (0.2-1.0); BLOOD UREA NITROGEN 38 mg/dL (7-18); CALCIUM 9.2 MG/DL (8.5-10.1); CARBON DIOXIDE 25 MMOL/L (21-32); CHLORIDE 103 MMOL/L (98-107); CREATININE 1.6 MG/DL (0.55-1.30); POTASSIUM 4.5 MMOL/L (3.5-5.1); SODIUM 140 MMOL/L (136-145)
[2019-11-23 06:53] LABS: BILIRUBIN,DIRECT 1.1 MG/DL (0.0-0.3)
--- NOTE | 2019-11-23 06:53 | NUR ---
HAND-OFF: Report given to RHONA Cui.
--- NOTE | 2019-11-23 07:33 | NUR ---
NURSE NOTES: Received patient in bed awake. Shortness of breath noted, O2 via NC maintained in place. Complaining of constipation. IV line intact. HOB elevated. Bed locked in lowest position. Call light within reach. Will continue plan of care.
[2019-11-23 08:00] VITALS: BP 125/87
[2019-11-23] MEDS ORDERED: Fleet's Enema 133ml RECTAL SCH (08:00)
[2019-11-23] MEDS: Wixela 250/50 Inhaler - 60 dose INH SCH (09:00)
--- NOTE | 2019-11-23 09:50 | Nephrology Progress Note ---
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 #Acute on chronic CHF exacerbation #HTN #CAD #history of [place] #COPD #history of tobacco - lasix 40 IV BID - defer renal imaging for now - stric I&Os - daily weights - coreg 6.25mg BID - continue breathing tx - asa 81 - statin - monitor bmp, mag and phos daily time spent 45 minutes - greater than 50% on care coordination and counseling Subjective ROS Limited/Unobtainable: No Constitutional: Denies: no symptoms, chills, diaphoresis, fever, malaise, weakness, other HEENT: Denies: no symptoms, eye pain, blurred vision, tearing, double vision, ear pain, ear discharge, nose pain, nose congestion, throat pain, throat swelling, mouth pain, mouth swelling, other Genitourinary: Denies: no symptoms, burning, discharge, frequency, flank pain, hematuria, incontinence, pain, urgency, other Neurologic/Psychiatric: Denies: no symptoms, anxiety, depressed, emotional problems, headache, numbness, paresthesia, pre-existing deficit, seizure, tingling, tremors, weakness, other Subjective Breathing much improved on NC Cr stable- down to 1.6 no chest pain diuressing well Objective Objective Last 24 Hour Vital Signs Date Time Temp Pulse Resp B/P (MAP) Pulse Ox O2 Delivery O2 Flow Rate FiO2 11/23/19 08:00 97.1 92 19 125/87 (100) 97 11/23/19 04:00 89 11/23/19 04:00 97.5 84 19 109/72 (84) 99 11/23/19 00:00 97.4 91 20 113/77 (89) 99 11/23/19 00:00 96 11/22/19 21:05 98 130/91 11/22/19 21:00 Nasal Cannula 2.0 11/22/19 20:00 99 11/22/19 20:00 97.6 98 22 130/91 (104) 99 11/22/19 19:42 97 Nasal Cannula 2.0 28 11/22/19 19:42 71 20 97 2.0 28 11/22/19 17:39 66 18 99 Nasal Cannula 2.0 28 63 18 94 11/22/19 16:00 96.8 54 18 114/83 (93) 100 11/22/19 15:13 87 11/22/19 12:51 86 20 99 Nasal Cannula 2.0 28 84 20 96 11/22/19 12:00 95 11/22/19 11:55 98.6 81 19 120/61 (80) 96 Intake and Output 11/22/19 11/23/19 19:00 07:00 Intake Total 140 ml Output Total 1200 ml Balance -1060 ml Intake Oral 140 ml Output Urine Total 1200 ml # Voids 3 5 # Bowel Movements 1 Laboratory Tests 11/23/19 05:00: White Blood Count 6.5, Red Blood Count 5.50, Hemoglobin 13.4L, Hematocrit 45.2, Mean Corpuscular Volume 82, Mean Corpuscular Hemoglobin 24.3L, Mean Corpuscular Hemoglobin Concent 29.6L, Red Cell Distribution Width 16.6H, Platelet Count 160 , Mean Platelet Volume 9.9, Neutrophils (%) (Auto) 48.5, Lymphocytes (%) (Auto) 39.1, Monocytes (%) (Auto) 10.5H, Eosinophils (%) (Auto) 0.7, Basophils (%) ( Auto) 1.2, Sodium Level 140, Potassium Level 4.5, Chloride Level 103, Carbon Dioxide Level 25, Anion Gap 12, Blood Urea Nitrogen 38H, Creatinine 1.6H, Estimat Glomerular Filtration Rate 52.4, Glucose Level 123H, Calcium Level 9.2, Phosphorus Level 3.0, Magnesium Level 2.2, Total Bilirubin 1.5H, Direct Bilirubin 1.1H, Aspartate Amino Transf (AST/SGOT) 48H, Alanine Aminotransferase (ALT/SGPT) 43, Alkaline Phosphatase 313H, Total Protein 7.1, Albumin 3.4, Globulin 3.7, Albumin/Globulin Ratio 0.9L Height (Feet): 6 Height (Inches): 0.00 Weight (Pounds): 190 General Appearance: no apparent distress, alert EENT: PERRL/EOMI, normal ENT inspection Neck: non-tender, normal alignment Cardiovascular: normal peripheral pulses, normal rate, regular rhythm Respiratory/Chest: rhonchi - bilaterally Abdomen: normal bowel sounds, non tender, soft Extremities: normal range of motion, non-tender Neurologic: alert, oriented x 3 Mary Dawn M.D. Nov 23, 2019 09:50
[2019-11-23] MEDS: Carvedilol 6.25mg Tab ORAL SCH (10:05)
[2019-11-23] MEDS: Docusate 100mg cap ORAL SCH ×2 (10:06→17:27)
[2019-11-23] MEDS: Aspirin Baby 81mg ORAL SCH (10:06)
[2019-11-23] MEDS: Heparin 5000 units/ml inj SUBQ SCH ×2 (10:07→21:00)
--- NOTE | 2019-11-23 11:18 | Cardiology Progress Note ---
Assessment/Plan Status: stable Assessment/Plan ASSESSMENT: CHF SOB VALERIO COPD Fluid overload PLAN: Maintain diuresis transition to PO lasix Echocardiogram with severe systolic dysfunction and severe PAH/TR/MR Recommend life vest -> ICD at later date (order placed and patient will be fit in hospital) DASH diet Fluid restriction Mobilize Pulmonary toilet Outpatient stress test Increase coreg to 6.25 BID Start aldactone when creatinine <1.5 Start lisinopril 5 mg when creatinine <1.5 Subjective Cardiovascular: Reports: no symptoms Respiratory: Reports: no symptoms Gastrointestinal/Abdominal: Reports: no symptoms Genitourinary: Reports: no symptoms Subjective No acute events, no CP, stable on room air, appropriate diuresis to lasix, breathing better, tolerating medications, creatinine improved Objective Last 24 Hour Vital Signs Date Time Temp Pulse Resp B/P (MAP) Pulse Ox O2 Delivery O2 Flow Rate FiO2 11/23/19 10:05 92 125/87 11/23/19 08:00 97.1 92 19 125/87 (100) 97 11/23/19 04:00 89 11/23/19 04:00 97.5 84 19 109/72 (84) 99 11/23/19 00:00 97.4 91 20 113/77 (89) 99 11/23/19 00:00 96 11/22/19 21:05 98 130/91 11/22/19 21:00 Nasal Cannula 2.0 11/22/19 20:00 99 11/22/19 20:00 97.6 98 22 130/91 (104) 99 11/22/19 19:42 97 Nasal Cannula 2.0 28 11/22/19 19:42 71 20 97 2.0 28 11/22/19 17:39 66 18 99 Nasal Cannula 2.0 28 63 18 94 11/22/19 16:00 96.8 54 18 114/83 (93) 100 11/22/19 15:13 87 11/22/19 12:51 86 20 99 Nasal Cannula 2.0 28 84 20 96 11/22/19 12:00 95 11/22/19 11:55 98.6 81 19 120/61 (80) 96 General Appearance: no apparent distress, alert EENT: PERRL/EOMI, normal ENT inspection, TMs normal, pharynx normal Neck: non-tender, normal alignment, supple, normal inspection, no JVD Rhythm: NSR Cardiovascular: normal peripheral pulses, normal rate, regular rhythm Respiratory/Chest: chest wall non-tender, lungs clear, normal breath sounds Abdomen: normal bowel sounds, non tender, soft, no organomegaly Extremities: normal range of motion, non-tender, normal inspection, no calf tenderness, no swelling 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, no motor/sensory deficits Intake and Output 11/22/19 11/23/19 19:00 07:00 Intake Total 140 ml Output Total 1200 ml Balance -1060 ml Intake Oral 140 ml Output Urine Total 1200 ml # Voids 3 5 # Bowel Movements 1 Laboratory Tests Test 11/23/19 05:00 White Blood Count 6.5 K/UL (4.8-10.8) Red Blood Count 5.50 M/UL (4.70-6.10) Hemoglobin 13.4 G/DL (14.2-18.0) L Hematocrit 45.2 % (42.0-52.0) Mean Corpuscular Volume 82 FL (80-99) Mean Corpuscular Hemoglobin 24.3 PG (27.0-31.0) L Mean Corpuscular Hemoglobin Concent 29.6 G/DL (32.0-36.0) L Red Cell Distribution Width 16.6 % (11.6-14.8) H Platelet Count 160 K/UL (150-450) Mean Platelet Volume 9.9 FL (6.5-10.1) Neutrophils (%) (Auto) 48.5 % (45.0-75.0) Lymphocytes (%) (Auto) 39.1 % (20.0-45.0) Monocytes (%) (Auto) 10.5 % (1.0-10.0) H Eosinophils (%) (Auto) 0.7 % (0.0-3.0) Basophils (%) (Auto) 1.2 % (0.0-2.0) Sodium Level 140 MMOL/L (136-145) Potassium Level 4.5 MMOL/L (3.5-5.1) Chloride Level 103 MMOL/L (98-107) Carbon Dioxide Level 25 MMOL/L (21-32) Anion Gap 12 mmol/L (5-15) Blood Urea Nitrogen 38 mg/dL (7-18) H Creatinine 1.6 MG/DL (0.55-1.30) H Estimat Glomerular Filtration Rate 52.4 mL/min (>60) Glucose Level 123 MG/DL (74-106) H Calcium Level 9.2 MG/DL (8.5-10.1) Phosphorus Level 3.0 MG/DL (2.5-4.9) Magnesium Level 2.2 MG/DL (1.8-2.4) Total Bilirubin 1.5 MG/DL (0.2-1.0) H Direct Bilirubin 1.1 MG/DL (0.0-0.3) H Aspartate Amino Transf (AST/SGOT) 48 U/L (15-37) H Alanine Aminotransferase (ALT/SGPT) 43 U/L (12-78) Alkaline Phosphatase 313 U/L (46-116) H Total Protein 7.1 G/DL (6.4-8.2) Albumin 3.4 G/DL (3.4-5.0) Globulin 3.7 g/dL Albumin/Globulin Ratio 0.9 (1.0-2.7) L Kt Alberto MD Nov 23, 2019 11:18
[2019-11-23] MEDS: Albuterol/Ipratropium 3ml neb HHN PRN (11:47)
--- NOTE | 2019-11-23 11:48 | NUR ---
CASE MANAGEMENT:REVIEW 11/23/19 SI: CHF W/EF 10-15% HYPOXEMIA. PULMONARY EDEMA COPD. FLUID OVERLOAD 97.1 92 19 125/87 97% ON 2L/NC BUN+38 CR+1.6 TBILI+1.5 DBILI+1.1 IS: ASA PO QD MVI PO QD SPIRIVA INH QD IV LASIX Q12 COREG PO Q12 ADVAIR INH Q12 HEPARIN SQ Q12 : TELEMETRY STATUS DCP: WILL DC TO [facility] OR [facility] HOME PLAN: STRICT I&O FLUID RESTRICTION TRANSITION TO PO LASIX PULMONARY TOILET WEAN OXYGEN LIFE VEST ORDERED BY WELT CUTTER THRU "ZOLL LIFE VEST"
[2019-11-23 12:00] VITALS: BP 120/88
--- NOTE | 2019-11-23 14:13 | Pulmonology Progress Note ---
Subjective ROS Limited/Unobtainable: No Interval Events: Feeling better Constitutional: Reports: no symptoms HEENT: Repors: no symptoms Respiratory: Reports: no symptoms Cardiovascular: Reports: no symptoms Gastrointestinal/Abdominal: Reports: no symptoms Allergies: Coded Allergies: No Known Allergies (Unverified , 11/20/19) Objective Last 24 Hour Vital Signs Date Time Temp Pulse Resp B/P (MAP) Pulse Ox O2 Delivery O2 Flow Rate FiO2 11/23/19 12:00 98.6 92 19 120/88 (99) 97 11/23/19 12:00 89 11/23/19 11:20 98 18 99 Room Air 21 95 18 96 11/23/19 11:20 95 18 96 2.0 28 11/23/19 11:20 96 Room Air 21 11/23/19 10:05 92 125/87 11/23/19 09:00 Nasal Cannula 2.0 11/23/19 08:00 101 11/23/19 08:00 97.1 92 19 125/87 (100) 97 11/23/19 04:00 89 11/23/19 04:00 97.5 84 19 109/72 (84) 99 11/23/19 00:00 97.4 91 20 113/77 (89) 99 11/23/19 00:00 96 11/22/19 21:05 98 130/91 11/22/19 21:00 Nasal Cannula 2.0 11/22/19 20:00 99 11/22/19 20:00 97.6 98 22 130/91 (104) 99 11/22/19 19:42 97 Nasal Cannula 2.0 28 11/22/19 19:42 71 20 97 2.0 28 11/22/19 17:39 66 18 99 Nasal Cannula 2.0 28 63 18 94 11/22/19 16:00 96.8 54 18 114/83 (93) 100 11/22/19 15:13 87 Intake and Output 11/22/19 11/23/19 19:00 07:00 Intake Total 140 ml Output Total 1200 ml Balance -1060 ml Intake Oral 140 ml Output Urine Total 1200 ml # Voids 3 5 # Bowel Movements 1 General Appearance: no acute distress HEENT: normocephalic Respiratory: chest wall non-tender, lungs clear Cardiovascular: normal peripheral pulses, normal rate Abdomen: normal bowel sounds Laboratory Tests 11/23/19 05:00: White Blood Count 6.5, Red Blood Count 5.50, Hemoglobin 13.4L, Hematocrit 45.2, Mean Corpuscular Volume 82, Mean Corpuscular Hemoglobin 24.3L, Mean Corpuscular Hemoglobin Concent 29.6L, Red Cell Distribution Width 16.6H, Platelet Count 160 , Mean Platelet Volume 9.9, Neutrophils (%) (Auto) 48.5, Lymphocytes (%) (Auto) 39.1, Monocytes (%) (Auto) 10.5H, Eosinophils (%) (Auto) 0.7, Basophils (%) ( Auto) 1.2, Sodium Level 140, Potassium Level 4.5, Chloride Level 103, Carbon Dioxide Level 25, Anion Gap 12, Blood Urea Nitrogen 38H, Creatinine 1.6H, Estimat Glomerular Filtration Rate 52.4, Glucose Level 123H, Calcium Level 9.2, Phosphorus Level 3.0, Magnesium Level 2.2, Total Bilirubin 1.5H, Direct Bilirubin 1.1H, Aspartate Amino Transf (AST/SGOT) 48H, Alanine Aminotransferase (ALT/SGPT) 43, Alkaline Phosphatase 313H, Total Protein 7.1, Albumin 3.4, Globulin 3.7, Albumin/Globulin Ratio 0.9L Current Medications Medications (Trade) Dose Ordered Sig/Kellee Route PRN Reason Start Time Stop Time Status Last Admin Dose Admin Acetaminophen (Tylenol) 650 mg Q6H PRN ORAL HERNANDEZ/Pain 1-4/T>100.4 11/20/19 13:15 12/20/19 13:14 11/21/19 21:07 Albuterol/ Ipratropium (Albuterol/ Ipratropium) 3 ml Q4H PRN HHN Shortness of Breath 11/21/19 00:30 11/26/19 00:29 11/23/19 11:47 Aspirin (ASA) 81 mg DAILY ORAL 11/21/19 09:00 01/05/20 08:59 11/23/19 10:06 Atorvastatin Calcium (Lipitor) 40 mg BEDTIME ORAL 11/20/19 21:00 02/18/20 20:59 11/22/19 21:05 Carvedilol (Coreg) 6.25 mg EVERY 12 HOURS ORAL 11/22/19 21:00 12/20/19 20:59 11/23/19 10:05 Docusate Sodium (Colace) 200 mg TWICE A DAY ORAL 11/22/19 10:15 12/22/19 10:14 11/23/19 10:06 Furosemide (Lasix) 40 mg BID IV 11/21/19 09:00 12/21/19 08:59 11/23/19 10:06 Heparin Sodium (Porcine) (Heparin 5000 units/ml) 5,000 units EVERY 12 HOURS SUBQ 11/20/19 21:00 01/04/20 20:59 11/23/19 10:07 Latanoprost (Xalatan) 1 drop BEDTIME BOTH EYES 11/20/19 21:00 12/20/19 20:59 11/22/19 21:05 Magnesium Hydroxide (Mom) 30 ml DAILYPRN PRN ORAL Constipation 11/22/19 21:11 12/22/19 21:10 11/22/19 21:18 Multivitamins (Multivitamins) 1 tab DAILY ORAL 11/21/19 09:00 12/21/19 08:59 11/23/19 10:06 Salmeterol Xinafoate/ Fluticasone (Advair 250/50 Diskus) 1 puffs EVERY 12 HOURS INH 11/20/19 21:00 02/18/20 20:59 11/22/19 21:12 Tiotropium [place] (Spiriva Inhaler) 1 puff DAILY INH 11/21/19 09:00 12/21/19 08:59 11/23/19 10:12 Trazodone HCl (Desyrel) 50 mg BEDTIME ORAL 11/21/19 00:30 12/21/19 00:29 11/22/19 21:05 Assessment/Plan Assessment/Plan IMPRESSION: 1. Decompensated congestive heart failure. 2. Hypoxemia. 3. Pulmonary edema. DISCUSSION: Continue diuresis. Oxygen and pulmonary hygiene. I will follow as supervisor color making. Romeo Jeffers Omar Syed MD Nov 23, 2019 14:13
--- NOTE | 2019-11-23 14:32 | Surgery Progress Note ---
Surgery Progress Note Subjective Symptoms: improved, tolerating diet, voiding well, passing flatus Objective Last 24 Hour Vital Signs Date Time Temp Pulse Resp B/P (MAP) Pulse Ox O2 Delivery O2 Flow Rate FiO2 11/23/19 12:00 98.6 92 19 120/88 (99) 97 11/23/19 12:00 89 11/23/19 11:20 98 18 99 Room Air 21 95 18 96 11/23/19 11:20 95 18 96 2.0 28 11/23/19 11:20 96 Room Air 21 11/23/19 10:05 92 125/87 11/23/19 09:00 Nasal Cannula 2.0 11/23/19 08:00 101 11/23/19 08:00 97.1 92 19 125/87 (100) 97 11/23/19 04:00 89 11/23/19 04:00 97.5 84 19 109/72 (84) 99 11/23/19 00:00 97.4 91 20 113/77 (89) 99 11/23/19 00:00 96 11/22/19 21:05 98 130/91 11/22/19 21:00 Nasal Cannula 2.0 11/22/19 20:00 99 11/22/19 20:00 97.6 98 22 130/91 (104) 99 11/22/19 19:42 97 Nasal Cannula 2.0 28 11/22/19 19:42 71 20 97 2.0 28 11/22/19 17:39 66 18 99 Nasal Cannula 2.0 28 63 18 94 11/22/19 16:00 96.8 54 18 114/83 (93) 100 11/22/19 15:13 87 I&O Intake and Output 11/22/19 11/23/19 19:00 07:00 Intake Total 140 ml Output Total 1200 ml Balance -1060 ml Intake Oral 140 ml Output Urine Total 1200 ml # Voids 3 5 # Bowel Movements 1 Dressing: dry Cardiovascular: RSR Respiratory: clear Abdomen: soft, non-tender, present bowel sounds Extremities: no edema, no tenderness, no cyanosis Laboratory Tests Test 11/23/19 05:00 White Blood Count 6.5 K/UL (4.8-10.8) Red Blood Count 5.50 M/UL (4.70-6.10) Hemoglobin 13.4 G/DL (14.2-18.0) L Hematocrit 45.2 % (42.0-52.0) Mean Corpuscular Volume 82 FL (80-99) Mean Corpuscular Hemoglobin 24.3 PG (27.0-31.0) L Mean Corpuscular Hemoglobin Concent 29.6 G/DL (32.0-36.0) L Red Cell Distribution Width 16.6 % (11.6-14.8) H Platelet Count 160 K/UL (150-450) Mean Platelet Volume 9.9 FL (6.5-10.1) Neutrophils (%) (Auto) 48.5 % (45.0-75.0) Lymphocytes (%) (Auto) 39.1 % (20.0-45.0) Monocytes (%) (Auto) 10.5 % (1.0-10.0) H Eosinophils (%) (Auto) 0.7 % (0.0-3.0) Basophils (%) (Auto) 1.2 % (0.0-2.0) Sodium Level 140 MMOL/L (136-145) Potassium Level 4.5 MMOL/L (3.5-5.1) Chloride Level 103 MMOL/L (98-107) Carbon Dioxide Level 25 MMOL/L (21-32) Anion Gap 12 mmol/L (5-15) Blood Urea Nitrogen 38 mg/dL (7-18) H Creatinine 1.6 MG/DL (0.55-1.30) H Estimat Glomerular Filtration Rate 52.4 mL/min (>60) Glucose Level 123 MG/DL (74-106) H Calcium Level 9.2 MG/DL (8.5-10.1) Phosphorus Level 3.0 MG/DL (2.5-4.9) Magnesium Level 2.2 MG/DL (1.8-2.4) Total Bilirubin 1.5 MG/DL (0.2-1.0) H Direct Bilirubin 1.1 MG/DL (0.0-0.3) H Aspartate Amino Transf (AST/SGOT) 48 U/L (15-37) H Alanine Aminotransferase (ALT/SGPT) 43 U/L (12-78) Alkaline Phosphatase 313 U/L (46-116) H Total Protein 7.1 G/DL (6.4-8.2) Albumin 3.4 G/DL (3.4-5.0) Globulin 3.7 g/dL Albumin/Globulin Ratio 0.9 (1.0-2.7) L Plan Problems: (1) CHF exacerbation (2) Chest pain (3) Abnormal LFTs Assessment & Plan: 61-year-old male elevated LFTs CHF shortness of breath worse with deep inspiration. Positive Horvath's or upper quadrant tender on palpation respiratory alert Ultrasound abdomen ordered Trend LFTs We will follow with recommendations thank you let me participate in patient's care Likely some intrinsic liver disease Gallbladder noted on ultrasound Tenderness is improved Agree with likely secondary to underlying liver disease We will follow with examination The liver and spleen are homogeneous. Gallbladder is contracted. Patient is not fasting. There is suggestion of gallbladder wall thickening. Question related to underlying liver disease. Common bile duct measures 4 mm. Pancreas is well visualized. The kidneys are normal in size, shape and axis. Aorta and cava are also obscured by bowel gas. Small amount of ascites noted along with bilateral effusions. IMPRESSION: GALLBLADDER IS CONTRACTED BUT THERE IS ALSO SUGGESTION OF SOME GALLBLADDER WALL THICKENING. QUESTION PRIMARY GALLBLADDER DISEASE VERSUS SECONDARY TO UNDERLYING LIVER DISEASE. PATIENT IS NOT FOCALLY TENDER. SMALL AMOUNT OF ASCITES. BILATERAL EFFUSIONS. Arsh Soto Nov 23, 2019 14:32
[2019-11-23 16:00] VITALS: BP 122/84
--- NOTE | 2019-11-23 16:26 | General Progress Note ---
Assessment/Plan Problem List: (1) Chest pain ICD Codes: R07.9 - Chest pain, unspecified SNOMED: 27503875 (2) Abnormal LFTs ICD Codes: R94.5 - Abnormal results of liver function studies SNOMED: 837187958 (3) CHF exacerbation ICD Codes: I50.9 - Heart failure, unspecified SNOMED: 294065158, [id number] Status: stable Assessment/Plan: 69y/o male with pmh CHF, COPD who presents with SOB, BLE edema, admitted for CHF exacerbation. # CHF exacerbation/ADHF - possibly 2/2 med and/or dietary noncompliance. Unknown EF prior to admission (EF of 10%) - Cardiology consulted - Tele - Diuresis w/ lasix 40mg IV BID errantly changed to p.o. Lasix 40 mg p.o. twice daily - Monitor BMP/Mg - Strict I/O's - Daily weights - Check TTE reviewed, will be fitted for LifeVest prior to discharge with consideration of AICD as outpatient # VALERIO vs VALERIO on CKD - unknown baseline, Cr. 1.7 on admit, possibly 2/2 cardiorenal syndrome - Renal consulted - DIuresis as above - Avoid nephrotoxic agents -Continue current medications for cardiac optimization as recommended by both nephrology and cardiology # Abnormal LFT's - f/u US: Gallbladder wall thickening -General surgery following, appreciate recs - CTM CMP # COPD - no e/o acute exacerbation - Cont Advair, Spiriva - Cont duonebs - Pulm consulted DVT Prophylaxis: HSQ Code Status: Full Hospital Classification Declaration: Based on this initial evaluation, and depending on the patient's clinical course, I anticipate that this patient will require hospitalization for 2-3 days for CHF exacerbation, and close respiratory /hemodynamic monitoring. Disposition: Once the patient is stable to leave the hospital, I anticipate the patient will likely be discharged to the following environment: home with HH vs SNF I spent 41 minutes on this patient's case, and 28 minutes were dedicated to counseling and/or care coordination. Discussed with patient/family, nursing staff, cardiology regarding clinical status, treatment course, and disposition planning. Time of note may not reflect time of encounter. Subjective Date patient seen: Nov 23, 2019 Time patient seen: 13:00 Allergies: Coded Allergies: No Known Allergies (Unverified , 6/22/20) Subjective Denies abdominal pain, tolerating diet without nausea vomiting, no shortness of breath on ambulation, edema improved in lower extremities Objective Last 24 Hour Vital Signs Date Time Temp Pulse Resp B/P (MAP) Pulse Ox O2 Delivery O2 Flow Rate FiO2 11/23/19 16:00 98.6 84 20 122/84 (97) 99 11/23/19 12:00 98.6 92 19 120/88 (99) 97 11/23/19 12:00 89 11/23/19 11:20 98 18 99 Room Air 21 95 18 96 11/23/19 11:20 95 18 96 2.0 28 11/23/19 11:20 96 Room Air 21 11/23/19 10:05 92 125/87 11/23/19 09:00 Nasal Cannula 2.0 11/23/19 08:00 101 11/23/19 08:00 97.1 92 19 125/87 (100) 97 11/23/19 04:00 89 11/23/19 04:00 97.5 84 19 109/72 (84) 99 11/23/19 00:00 97.4 91 20 113/77 (89) 99 11/23/19 00:00 96 11/22/19 21:05 98 130/91 11/22/19 21:00 Nasal Cannula 2.0 11/22/19 20:00 99 11/22/19 20:00 97.6 98 22 130/91 (104) 99 11/22/19 19:42 97 Nasal Cannula 2.0 28 11/22/19 19:42 71 20 97 2.0 28 11/22/19 17:39 66 18 99 Nasal Cannula 2.0 28 63 18 94 Intake and Output 11/22/19 11/23/19 19:00 07:00 Intake Total 140 ml Output Total 1200 ml Balance -1060 ml Intake Oral 140 ml Output Urine Total 1200 ml # Voids 3 5 # Bowel Movements 1 Laboratory Tests 11/23/19 05:00: White Blood Count 6.5, Red Blood Count 5.50, Hemoglobin 13.4L, Hematocrit 45.2, Mean Corpuscular Volume 82, Mean Corpuscular Hemoglobin 24.3L, Mean Corpuscular Hemoglobin Concent 29.6L, Red Cell Distribution Width 16.6H, Platelet Count 160 , Mean Platelet Volume 9.9, Neutrophils (%) (Auto) 48.5, Lymphocytes (%) (Auto) 39.1, Monocytes (%) (Auto) 10.5H, Eosinophils (%) (Auto) 0.7, Basophils (%) ( Auto) 1.2, Sodium Level 140, Potassium Level 4.5, Chloride Level 103, Carbon Dioxide Level 25, Anion Gap 12, Blood Urea Nitrogen 38H, Creatinine 1.6H, Estimat Glomerular Filtration Rate 52.4, Glucose Level 123H, Calcium Level 9.2, Phosphorus Level 3.0, Magnesium Level 2.2, Total Bilirubin 1.5H, Direct Bilirubin 1.1H, Aspartate Amino Transf (AST/SGOT) 48H, Alanine Aminotransferase (ALT/SGPT) 43, Alkaline Phosphatase 313H, Total Protein 7.1, Albumin 3.4, Globulin 3.7, Albumin/Globulin Ratio 0.9L Height (Feet): 6 Height (Inches): 0.00 Weight (Pounds): 190 Objective GENERAL: No acute distress, appears comfortable, alert HEENT: NCAT, non-icteric eyes, pupils PERRLA Neck: No cervical lymphadenopathy, trachea midline CV: Regular rate and rhythm, no murmurs rubs or gallops RESP: Clear to auscultation bilaterally, no wheezes/rhonchi/crackles ABD: soft, non-distended, no TTP EXT: Normal muscle tone, +5/5 muscle strength, trace edema bilaterally NEURO: No obvious deficits, alert and oriented x3 Sol Menard DO Nov 23, 2019 16:26
--- NOTE | 2019-11-23 17:00 | NUR ---
*-* INSURANCE *-* UPDATED CLINICALS AND REVIEWS HAVE BEEN FAXED TO: [facility] Ref# [id number] #[phone] FAX#[phone]
--- NOTE | 2019-11-23 19:29 | NUR ---
HAND-OFF: Report given to Tiffanie MELGOZA.
[2019-11-23 20:00] VITALS: BP 112/91
--- NOTE | 2019-11-23 20:00 | NUR ---
NURSE NOTES: Patient received from Basilia RN. Patient is in stable condition. Noted slight Shortness of Breath On oxygen via Nasal Cannula @ 1 L/min, however O2 sat is 98%. Will titrate down as pt is able to tolerate less O2 and may be discharged tomorrow. Pt is alert and oriented x4. IV site patent at Left AC 20G saline locked. Bed is low and locked. Vital signs stable. Call light within reach. Will continue plan of care.
[2019-11-24] VITALS: BP 110/70
[2019-11-24] MEDS: Wixela 250/50 Inhaler - 60 dose INH SCH ×3 (00:44→09:03)
[2019-11-24] MEDS: Latanoprost 0.005% Opth 2.5ml Soln BOTH EYES SCH (00:44)
[2019-11-24] MEDS: Atorvastatin 20mg tab ORAL SCH (00:45)
[2019-11-24] MEDS: TraZODone 50mg tab ORAL SCH (00:46)
[2019-11-24] MEDS: Carvedilol 6.25mg Tab ORAL SCH ×2 (00:46→09:03)
[2019-11-24] MEDS: Furosemide 40mg tab ORAL SCH ×2 (00:46→09:03)
[2019-11-24 04:00] VITALS: BP 116/75
--- NOTE | 2019-11-24 05:29 | Pulmonology Progress Note ---
Subjective ROS Limited/Unobtainable: No Interval Events: Feeling better Constitutional: Reports: no symptoms HEENT: Repors: no symptoms Respiratory: Reports: no symptoms Cardiovascular: Reports: no symptoms Gastrointestinal/Abdominal: Reports: no symptoms Allergies: Coded Allergies: No Known Allergies (Unverified , 11/20/19) Objective Last 24 Hour Vital Signs Date Time Temp Pulse Resp B/P (MAP) Pulse Ox O2 Delivery O2 Flow Rate FiO2 11/24/19 00:46 86 112/91 11/24/19 00:00 97.9 91 20 110/70 (83) 99 11/24/19 00:00 93 11/23/19 21:00 Nasal Cannula 2.0 11/23/19 20:00 93 11/23/19 20:00 97.5 86 19 112/91 (98) 98 11/23/19 16:00 88 11/23/19 16:00 98.6 84 20 122/84 (97) 99 11/23/19 12:00 98.6 92 19 120/88 (99) 97 11/23/19 12:00 89 11/23/19 11:20 98 18 99 Room Air 21 95 18 96 11/23/19 11:20 95 18 96 2.0 28 11/23/19 11:20 96 Room Air 21 11/23/19 10:05 92 125/87 11/23/19 09:00 Nasal Cannula 2.0 11/23/19 08:00 101 11/23/19 08:00 97.1 92 19 125/87 (100) 97 Intake and Output 11/23/19 11/24/19 19:00 07:00 Intake Total 1200 ml Output Total 600 ml Balance 600 ml Intake Oral 1200 ml Output Urine Total 600 ml # Voids 1 General Appearance: no acute distress HEENT: normocephalic Respiratory: chest wall non-tender, lungs clear Cardiovascular: normal peripheral pulses, normal rate Abdomen: normal bowel sounds Current Medications Medications (Trade) Dose Ordered Sig/Kellee Route PRN Reason Start Time Stop Time Status Last Admin Dose Admin Acetaminophen (Tylenol) 650 mg Q6H PRN ORAL HERNANDEZ/Pain 1-4/T>100.4 11/20/19 13:15 12/20/19 13:14 11/23/19 19:02 Albuterol/ Ipratropium (Albuterol/ Ipratropium) 3 ml Q4H PRN HHN Shortness of Breath 11/21/19 00:30 11/26/19 00:29 11/23/19 11:47 Aspirin (ASA) 81 mg DAILY ORAL 11/21/19 09:00 01/05/20 08:59 11/23/19 10:06 Atorvastatin Calcium (Lipitor) 40 mg BEDTIME ORAL 11/20/19 21:00 02/18/20 20:59 11/24/19 00:45 Carvedilol (Coreg) 6.25 mg EVERY 12 HOURS ORAL 11/22/19 21:00 12/20/19 20:59 11/24/19 00:46 Docusate Sodium (Colace) 200 mg TWICE A DAY ORAL 11/22/19 10:15 12/22/19 10:14 11/23/19 17:27 Furosemide (Lasix) 40 mg EVERY 12 HOURS ORAL 11/23/19 21:00 12/23/19 20:59 11/24/19 00:46 Heparin Sodium (Porcine) (Heparin 5000 units/ml) 5,000 units EVERY 12 HOURS SUBQ 11/20/19 21:00 01/04/20 20:59 11/23/19 10:07 Latanoprost (Xalatan) 1 drop BEDTIME BOTH EYES 11/20/19 21:00 12/20/19 20:59 11/24/19 00:44 Magnesium Hydroxide (Mom) 30 ml DAILYPRN PRN ORAL Constipation 11/22/19 21:11 12/22/19 21:10 11/22/19 21:18 Multivitamins (Multivitamins) 1 tab DAILY ORAL 11/21/19 09:00 12/21/19 08:59 11/23/19 10:06 Salmeterol Xinafoate/ Fluticasone (Advair 250/50 Diskus) 1 puffs EVERY 12 HOURS INH 11/20/19 21:00 02/18/20 20:59 11/24/19 00:44 Tiotropium [place] (Spiriva Inhaler) 1 puff DAILY INH 11/21/19 09:00 12/21/19 08:59 11/23/19 10:12 Trazodone HCl (Desyrel) 50 mg BEDTIME ORAL 11/21/19 00:30 12/21/19 00:29 11/24/19 00:46 Assessment/Plan Assessment/Plan IMPRESSION: 1. Decompensated congestive heart failure. 2. Hypoxemia. 3. Pulmonary edema. DISCUSSION: Continue diuresis. Oxygen and pulmonary hygiene. 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 Romeo Jeffers Omar Syed MD Nov 24, 2019 05:29
[2019-11-24 06:48] LABS: BASOPHILS % (AUTO) 1.2 % (0.0-2.0); EOSINOPHILS % (AUTO) 0.7 % (0.0-3.0); HEMATOCRIT 43.7 % (42.0-52.0); HEMOGLOBIN 12.9 G/DL (14.2-18.0); LYMPHOCYTES % (AUTO) 38.2 % (20.0-45.0); MEAN CORPUSCULAR VOLUME 82 FL (80-99); MONOCYTES % (AUTO) 14.3 % (1.0-10.0); NEUTROPHILS % (AUTO) 45.7 % (45.0-75.0); PLATELET COUNT 154 K/UL (150-450); RED BLOOD COUNT 5.31 M/UL (4.70-6.10); RED CELL DISTRIBUTION WIDTH 16.7 % (11.6-14.8); WHITE BLOOD COUNT 6.3 K/UL (4.8-10.8)
--- NOTE | 2019-11-24 07:01 | NUR ---
HAND-OFF: Report given to RHONA Cui.
[2019-11-24 07:09] LABS: ALANINE AMINOTRANSFERASE 36 U/L (12-78); ALBUMIN 3.4 G/DL (3.4-5.0); ALBUMIN/GLOBULIN RATIO 0.9 (1.0-2.7); ALKALINE PHOSPHATASE 284 U/L (46-116); ANION GAP 10 mmol/L (5-15); ASPARTATE AMINO TRANSFERASE 48 U/L (15-37); BLOOD UREA NITROGEN 40 mg/dL (7-18); CALCIUM 9.4 MG/DL (8.5-10.1); CARBON DIOXIDE 28 MMOL/L (21-32); CHLORIDE 101 MMOL/L (98-107); CREATININE 1.6 MG/DL (0.55-1.30); POTASSIUM 4.5 MMOL/L (3.5-5.1); SODIUM 139 MMOL/L (136-145)
[2019-11-24 07:14] LABS: ALANINE AMINOTRANSFERASE 44 U/L (12-78); ALBUMIN 3.5 G/DL (3.4-5.0); ALKALINE PHOSPHATASE 290 U/L (46-116); ASPARTATE AMINO TRANSFERASE 52 U/L (15-37); BILIRUBIN,DIRECT 1.2 MG/DL (0.0-0.3)
--- NOTE | 2019-11-24 07:24 | NUR ---
NURSE NOTES: Received patient in bed awake. No acute distress. IV line intact. HOB elevated. Bed locked in lowest position. Call light within reach. Will continue plan of care.
[2019-11-24 07:58] VITALS: BP 118/86
[2019-11-24] MEDS: Docusate 100mg cap ORAL SCH ×2 (09:02→18:00)
[2019-11-24] MEDS: Aspirin Baby 81mg ORAL SCH (09:03)
[2019-11-24] MEDS: Heparin 5000 units/ml inj SUBQ SCH (09:05)
[2019-11-24] MEDS ORDERED: ATORVASTATIN CA40 MG ORAL (09:09)
[2019-11-24] MEDS ORDERED: XALATAN2.5 ML BOTH EYES (09:09)
[2019-11-24] MEDS ORDERED: ASPIRIN81 MG ORAL (09:09)
[2019-11-24] MEDS ORDERED: FUROSEMIDE40 MG ORAL (09:09)
[2019-11-24] MEDS ORDERED: COREG6.25 MG ORAL (09:09)
--- NOTE | 2019-11-24 09:10 | Discharge Instructions ---
Discharge Instructions Discharge Instructions Follow up with: PCP 1-2 weeks Diet: 2 GM sodium (low sodium) Resume Normal Activity?: Yes Activity: resume normal activities For Surgical Patients May shower: Yes Contact your physician for: other - chest pain, shortness of breath or lower extremity swelling For Congestive Heart Failure Reminder Report to your physician any weight gain of 5 pounds or more in one week. Sol Menard DO Nov 24, 2019 09:10
--- NOTE | 2019-11-24 09:11 | Discharge Summary ---
Discharge Summary Hospital Course Date of Admission Nov 20, 2019 at 09:30 Date of Discharge 11/24/2019 Admitting Diagnosis chf exacerbation, copd Reason for Hospitalization: Exacerbation, requiring IV Lasix HPI Misbah Merrill is a 69 year old male who was admitted on Nov 20, 2019 at 09:30 for Congestive Heart Failure,Chronic Obstructive Consultations Nephrology, cardiology, surgery, gastroenterology Hospital Course 69y/o male with pmh CHF, COPD who presents with SOB, BLE edema, admitted for CHF exacerbation. Patient was admitted on IV Lasix with improvement of shortness of breath and lower extremity edema. Patient was weaned off oxygen and able to ambulate on room air prior to discharge. Cardiac work-up included negative troponin, unremarkable EKGs, however TTE positive for EF of 10 to 20%. Patient will be fitted for LifeVest prior to discharge. Patient also had elevated liver functions and remained asymptomatic, with no abdominal pain, nausea, vomiting. Abdominal ultrasound showed mild gallbladder wall thickening , liver and liver disease. Patient was evaluated by gastroenterology as well as surgery, with no intervention required. Patient remained nonseptic appearing , with normal white count and afebrile throughout admission. Patient will have medications filled at [facility] pharmacy across the street, and given to him along with a LifeVest prior to discharge. # CHF exacerbation/ADHF - possibly 2/2 med and/or dietary noncompliance. Unknown EF prior to admission (EF of 10%) - Cardiology consulted - Tele - Diuresis w/ lasix 40mg IV BID errantly changed to p.o. Lasix 40 mg p.o. twice daily - Monitor BMP/Mg - Strict I/O's - Daily weights - Check TTE reviewed, will be fitted for LifeVest prior to discharge with consideration of AICD as outpatient # VALERIO vs VALERIO on CKD - unknown baseline, Cr. 1.7 on admit, possibly 2/2 cardiorenal syndrome - Renal consulted - DIuresis as above - Avoid nephrotoxic agents -Continue current medications for cardiac optimization as recommended by both nephrology and cardiology # Abnormal LFT's - f/u US: Gallbladder wall thickening -General surgery following, appreciate recs - CTM CMP # COPD - no e/o acute exacerbation - Cont Advair, Spiriva - Cont duonebs - Pulm consulted DVT Prophylaxis: HSQ Code Status: Full Hospital Classification Declaration: Based on this initial evaluation, and depending on the patient's clinical course, I anticipate that this patient will require hospitalization for 2-3 days for CHF exacerbation, and close respiratory /hemodynamic monitoring. Disposition: Once the patient is stable to leave the hospital, I anticipate the patient will likely be discharged to the following environment: home with vs SNF I spent 41 minutes on this patient's case, and 28 minutes were dedicated to counseling and/or care coordination. Discussed with patient/family, nursing staff, cardiology regarding clinical status, treatment course, and disposition planning. Time of note may not reflect time of encounter. I spent an additional 39 minutes on reviewing patient's chart from admission. This includes review of imaging, labs, notes, and interpretation of results. Discharge Medications New Medications: Carvedilol (Coreg) 6.25 Mg Tablet 6.25 MG ORAL EVERY 12 HOURS, #60 TAB 0 Refills Latanoprost* (Xalatan*) 2.5 Ml Drops 1 DROP BOTH EYES BEDTIME for 30 Days, #1 TUBE 0 Refills Continued Medications: Aspirin* (Aspirin*) 81 Mg Tab.chew 81 MG ORAL DAILY for cardiac, #30 TAB 0 Refills (This prescription has been renewed) Atorvastatin Calcium* (Atorvastatin Calcium*) 40 Mg Tablet 40 MG ORAL BEDTIME for high cholesterol, #30 TAB 0 Refills (This prescription has been renewed) Fluticasone/Salmeterol (Advair 250-50 Diskus) 1 Each Blst.w.dev 1 PUFF INH EVERY 12 HOURS for COPD, EA (This prescription has been renewed) Furosemide* (Lasix*) 40 Mg Tablet 40 MG ORAL DAILY for CHF, #60 TAB 0 Refills (This prescription has been renewed) Multivitamins* (Multivitamins*) 1 Each Tablet 1 TAB ORAL DAILY for supplement, TAB 0 Refills (This prescription has been renewed) Tiotropium [place]* (Spiriva*) 18 Mcg Cap.w.dev 1 PUFF INH DAILY for COPD, EA (This prescription has been renewed) Discontinued Medications: Carvedilol* (Carvedilol*) 3.125 Mg Tablet 3.125 MG ORAL EVERY 12 HOURS for HTN, TAB Lisinopril* (Zestril*) 10 Mg Tablet 10 MG ORAL DAILY for HTN, TAB Discharge Condition Upon Discharge: stable Discharge Vital Signs Last Vital Signs Date Time Temp Pulse Resp B/P (MAP) Pulse Ox O2 Delivery O2 Flow Rate FiO2 6/26/20 09:03 84 118/86 11/24/19 07:58 98.6 20 96 11/23/19 21:00 Nasal Cannula 2.0 11/23/19 11:20 21 Discharge Disposition Patient was discharged to Custodial Discharge Diagnoses: (1) Acute systolic heart failure (2) Chest pain (3) Abnormal LFTs (4) CHF exacerbation Discharge Instructions Discharge Instructions Follow up with: PCP 1-2 weeks Activity: resume normal activities For Surgical Patients May shower: Yes Contact your physician for: other - chest pain, shortness of breath or lower extremity swelling Sol Menard DO Nov 24, 2019 09:11
--- NOTE | 2019-11-24 09:18 | NUR ---
NURSE NOTES: Patient with discharge orders today. Spoke with Dr Derian RN to make Dr Menard aware if patient is able to fit lifevest today so that the patient can go home after fitting.
--- NOTE | 2019-11-24 09:26 | Nephrology Progress Note ---
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 #Acute on chronic CHF exacerbation #HTN #CAD #history of [place] #COPD #history of tobacco - lasix 40 IV BID - defer renal imaging for now - stric I&Os - daily weights - coreg 6.25mg BID - continue breathing tx - asa 81 - statin - monitor bmp, mag and phos daily time spent 45 minutes - greater than 50% on care coordination and counseling Subjective ROS Limited/Unobtainable: No Subjective Breathing much improved on NC Cr stable- down to 1.6 no chest pain diuressing well Objective Objective Last 24 Hour Vital Signs Date Time Temp Pulse Resp B/P (MAP) Pulse Ox O2 Delivery O2 Flow Rate FiO2 11/24/19 09:03 84 118/86 11/24/19 07:58 98.6 84 20 118/86 (97) 96 11/24/19 04:00 98.0 87 19 116/75 (89) 99 11/24/19 04:00 88 11/24/19 00:46 86 112/91 11/24/19 00:00 97.9 91 20 110/70 (83) 99 11/24/19 00:00 93 11/23/19 21:00 Nasal Cannula 2.0 11/23/19 20:00 93 11/23/19 20:00 97.5 86 19 112/91 (98) 98 11/23/19 16:00 88 11/23/19 16:00 98.6 84 20 122/84 (97) 99 11/23/19 12:00 98.6 92 19 120/88 (99) 97 11/23/19 12:00 89 11/23/19 11:20 98 18 99 Room Air 21 95 18 96 11/23/19 11:20 95 18 96 2.0 28 11/23/19 11:20 96 Room Air 21 11/23/19 10:05 92 125/87 Intake and Output 11/23/19 11/24/19 19:00 07:00 Intake Total 1200 ml Output Total 600 ml Balance 600 ml Intake Oral 1200 ml Output Urine Total 600 ml # Voids 1 4 Laboratory Tests 11/24/19 05:15: White Blood Count 6.3, Red Blood Count 5.31, Hemoglobin 12.9L, Hematocrit 43.7, Mean Corpuscular Volume 82, Mean Corpuscular Hemoglobin 24.3L, Mean Corpuscular Hemoglobin Concent 29.6L, Red Cell Distribution Width 16.7H, Platelet Count 154 , Mean Platelet Volume 10.3H, Neutrophils (%) (Auto) 45.7, Lymphocytes (%) (Auto ) 38.2, Monocytes (%) (Auto) 14.3H, Eosinophils (%) (Auto) 0.7, Basophils (%) ( Auto) 1.2, Sodium Level 139, Potassium Level 4.5, Chloride Level 101, Carbon Dioxide Level 28, Anion Gap 10, Blood Urea Nitrogen 40H, Creatinine 1.6H, Estimat Glomerular Filtration Rate 52.4, Glucose Level 109H, Calcium Level 9.4, Total Bilirubin 2.0H, Direct Bilirubin 1.2H, Aspartate Amino Transf (AST/SGOT) 52H, Alanine Aminotransferase (ALT/SGPT) 44, Alkaline Phosphatase 290H, Total Protein 6.8, Albumin 3.5, Globulin 3.8, Albumin/Globulin Ratio 0.9L Height (Feet): 6 Height (Inches): 0.00 Weight (Pounds): 189 Mary Dawn M.D. Nov 24, 2019 09:26
--- NOTE | 2019-11-24 09:59 | NUR ---
CASE MANAGEMENT:REVIEW 11/24/19 SI: CHF W/EF 10-15% HYPOXEMIA. PULMONARY EDEMA COPD. FLUID OVERLOAD 98.6 84 20 118/86 96% ON 2L/NC HGB-12.9 BUN+40 CR+1.6 TBILI+2.0 DBILI+1.2 IS: LASIX PO Q12 COREG PO Q12 ASA PO QD MVI PO QD SPIRIVA INH QD ADVAIR INH Q12 HEPARIN SQ Q12 : TELEMETRY STATUS DCP: WILL DC TO [facility] OR LONG TERM PLAN: DISCHARGE TODAY ONCE LIFE VEST HAS BEEN PLACED
--- NOTE | 2019-11-24 10:03 | NUR ---
DISCHARGE PLANNING' DISCHARGE ORDER NOTED FOR DISCHARGE DISPOSITION PLEASE CALL [facility] [employer] SPOKE WITH MORGAN ROMERO T: [phone] LIFE VEST WILL ARRIVE AFTER 4PM TODAY.....REQUESTED EARLIER DELIVERY.....
[2019-11-24 11:38] VITALS: BP 120/85
--- NOTE | 2019-11-24 12:45 | Cardiology Progress Note ---
Assessment/Plan Status: stable Assessment/Plan ASSESSMENT: CHF SOB VALERIO COPD Fluid overload PLAN: Maintain diuresis transition to PO lasix Echocardiogram with severe systolic dysfunction and severe PAH/TR/MR Recommend life vest -> ICD at later date (order placed and patient will be fit in hospital) DASH diet Fluid restriction Mobilize Pulmonary toilet Outpatient stress test Increase coreg to 6.25 BID Start aldactone when creatinine <1.5 Start lisinopril 5 mg when creatinine <1.5 Subjective Cardiovascular: Reports: no symptoms Respiratory: Reports: no symptoms Gastrointestinal/Abdominal: Reports: no symptoms Genitourinary: Reports: no symptoms Subjective No acute events, no CP, stable on room air, appropriate diuresis to lasix, breathing better, tolerating medications, creatinine improved Objective Last 24 Hour Vital Signs Date Time Temp Pulse Resp B/P (MAP) Pulse Ox O2 Delivery O2 Flow Rate FiO2 11/24/19 11:38 98.7 76 19 120/85 (97) 98 11/24/19 09:03 84 118/86 11/24/19 09:00 Nasal Cannula 2.0 11/24/19 08:00 91 11/24/19 07:58 98.6 84 20 118/86 (97) 96 11/24/19 04:00 98.0 87 19 116/75 (89) 99 11/24/19 04:00 88 11/24/19 00:46 86 112/91 11/24/19 00:00 97.9 91 20 110/70 (83) 99 11/24/19 00:00 93 11/23/19 21:00 Nasal Cannula 2.0 11/23/19 20:00 93 11/23/19 20:00 97.5 86 19 112/91 (98) 98 11/23/19 16:00 88 11/23/19 16:00 98.6 84 20 122/84 (97) 99 General Appearance: no apparent distress, alert EENT: PERRL/EOMI, normal ENT inspection, TMs normal, pharynx normal Neck: non-tender, normal alignment, supple, no JVD Rhythm: NSR Cardiovascular: normal peripheral pulses, normal rate, regular rhythm Respiratory/Chest: chest wall non-tender, lungs clear Abdomen: normal bowel sounds, non tender, no organomegaly Extremities: normal range of motion, non-tender, normal inspection, no calf tenderness, no swelling 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, no motor/sensory deficits Intake and Output 11/23/19 11/24/19 19:00 07:00 Intake Total 1200 ml Output Total 600 ml Balance 600 ml Intake Oral 1200 ml Output Urine Total 600 ml # Voids 1 4 Laboratory Tests Test 11/24/19 05:15 White Blood Count 6.3 K/UL (4.8-10.8) Red Blood Count 5.31 M/UL (4.70-6.10) Hemoglobin 12.9 G/DL (14.2-18.0) L Hematocrit 43.7 % (42.0-52.0) Mean Corpuscular Volume 82 FL (80-99) Mean Corpuscular Hemoglobin 24.3 PG (27.0-31.0) L Mean Corpuscular Hemoglobin Concent 29.6 G/DL (32.0-36.0) L Red Cell Distribution Width 16.7 % (11.6-14.8) H Platelet Count 154 K/UL (150-450) Mean Platelet Volume 10.3 FL (6.5-10.1) H Neutrophils (%) (Auto) 45.7 % (45.0-75.0) Lymphocytes (%) (Auto) 38.2 % (20.0-45.0) Monocytes (%) (Auto) 14.3 % (1.0-10.0) H Eosinophils (%) (Auto) 0.7 % (0.0-3.0) Basophils (%) (Auto) 1.2 % (0.0-2.0) Sodium Level 139 MMOL/L (136-145) Potassium Level 4.5 MMOL/L (3.5-5.1) Chloride Level 101 MMOL/L (98-107) Carbon Dioxide Level 28 MMOL/L (21-32) Anion Gap 10 mmol/L (5-15) Blood Urea Nitrogen 40 mg/dL (7-18) H Creatinine 1.6 MG/DL (0.55-1.30) H Estimat Glomerular Filtration Rate 52.4 mL/min (>60) Glucose Level 109 MG/DL (74-106) H Calcium Level 9.4 MG/DL (8.5-10.1) Total Bilirubin 2.0 MG/DL (0.2-1.0) H Direct Bilirubin 1.2 MG/DL (0.0-0.3) H Aspartate Amino Transf (AST/SGOT) 52 U/L (15-37) H Alanine Aminotransferase (ALT/SGPT) 44 U/L (12-78) Alkaline Phosphatase 290 U/L (46-116) H Total Protein 6.8 G/DL (6.4-8.2) Albumin 3.5 G/DL (3.4-5.0) Globulin 3.8 g/dL Albumin/Globulin Ratio 0.9 (1.0-2.7) L Kt Alberto MD Nov 24, 2019 12:45
--- NOTE | 2019-11-24 13:20 | NUR ---
*-* INSURANCE *-* UPDATED CLINICALS AND REVIEWS HAVE BEEN FAXED TO: DANETTE Wilkerson Ref# [id number] #[phone] FAX#[phone] Addendum: 11/28/19 at 1440 by EBENEZER CRENSHAW CM DISCHARGE SUMMARY FAXED
[2019-11-24] MEDS: Albuterol/Ipratropium 3ml neb HHN PRN (14:13)
--- NOTE | 2019-11-24 15:23 | NUR ---
NURSE NOTES: Patient requesting PO lasix to be changed to IV, Dr George/Dr Menard made aware, awaiting callback.
[2019-11-24 16:00] VITALS: BP 110/84
--- NOTE | 2019-11-24 16:00 | NUR ---
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
[2019-11-24] MEDS ORDERED: Tubing IV Secondary IV ONE (18:42)
[2019-11-24] MEDS ORDERED: D5NS 1000ml IV ONE (18:42)
--- NOTE | 2019-11-24 19:54 | Surgery Progress Note ---
Surgery Progress Note Subjective Symptoms: improved, pain absent, tolerating diet, voiding well, passing flatus , BM Objective Last 24 Hour Vital Signs Date Time Temp Pulse Resp B/P (MAP) Pulse Ox O2 Delivery O2 Flow Rate FiO2 11/24/19 16:00 96.7 82 18 110/84 (93) 100 11/24/19 16:00 86 11/24/19 14:13 80 18 98 Room Air 21 72 18 96 11/24/19 12:00 90 11/24/19 11:38 98.7 76 19 120/85 (97) 98 11/24/19 09:03 84 118/86 11/24/19 09:00 Nasal Cannula 2.0 11/24/19 08:00 91 11/24/19 07:58 98.6 84 20 118/86 (97) 96 11/24/19 04:00 98.0 87 19 116/75 (89) 99 11/24/19 04:00 88 11/24/19 00:46 86 112/91 11/24/19 00:00 97.9 91 20 110/70 (83) 99 11/24/19 00:00 93 11/23/19 21:00 Nasal Cannula 2.0 11/23/19 20:00 93 11/23/19 20:00 97.5 86 19 112/91 (98) 98 I&O Intake and Output 11/23/19 11/24/19 19:00 07:00 Intake Total 1200 ml Output Total 600 ml Balance 600 ml Intake Oral 1200 ml Output Urine Total 600 ml # Voids 1 4 Dressing: dry Wound: clean Cardiovascular: RSR Respiratory: clear Abdomen: soft, non-tender, present bowel sounds Extremities: no edema, no tenderness, no cyanosis Laboratory Tests Test 11/24/19 05:15 White Blood Count 6.3 K/UL (4.8-10.8) Red Blood Count 5.31 M/UL (4.70-6.10) Hemoglobin 12.9 G/DL (14.2-18.0) L Hematocrit 43.7 % (42.0-52.0) Mean Corpuscular Volume 82 FL (80-99) Mean Corpuscular Hemoglobin 24.3 PG (27.0-31.0) L Mean Corpuscular Hemoglobin Concent 29.6 G/DL (32.0-36.0) L Red Cell Distribution Width 16.7 % (11.6-14.8) H Platelet Count 154 K/UL (150-450) Mean Platelet Volume 10.3 FL (6.5-10.1) H Neutrophils (%) (Auto) 45.7 % (45.0-75.0) Lymphocytes (%) (Auto) 38.2 % (20.0-45.0) Monocytes (%) (Auto) 14.3 % (1.0-10.0) H Eosinophils (%) (Auto) 0.7 % (0.0-3.0) Basophils (%) (Auto) 1.2 % (0.0-2.0) Sodium Level 139 MMOL/L (136-145) Potassium Level 4.5 MMOL/L (3.5-5.1) Chloride Level 101 MMOL/L (98-107) Carbon Dioxide Level 28 MMOL/L (21-32) Anion Gap 10 mmol/L (5-15) Blood Urea Nitrogen 40 mg/dL (7-18) H Creatinine 1.6 MG/DL (0.55-1.30) H Estimat Glomerular Filtration Rate 52.4 mL/min (>60) Glucose Level 109 MG/DL (74-106) H Calcium Level 9.4 MG/DL (8.5-10.1) Total Bilirubin 2.0 MG/DL (0.2-1.0) H Direct Bilirubin 1.2 MG/DL (0.0-0.3) H Aspartate Amino Transf (AST/SGOT) 52 U/L (15-37) H Alanine Aminotransferase (ALT/SGPT) 44 U/L (12-78) Alkaline Phosphatase 290 U/L (46-116) H Total Protein 6.8 G/DL (6.4-8.2) Albumin 3.5 G/DL (3.4-5.0) Globulin 3.8 g/dL Albumin/Globulin Ratio 0.9 (1.0-2.7) L Plan Problems: (1) CHF exacerbation (2) Chest pain (3) Abnormal LFTs Assessment & Plan: 61-year-old male elevated LFTs CHF shortness of breath worse with deep inspiration. Positive Horvath's or upper quadrant tender on palpation respiratory alert Ultrasound abdomen ordered Trend LFTs We will follow with recommendations thank you let me participate in patient's care Likely some intrinsic liver disease Gallbladder noted on ultrasound Tenderness is improved Agree with likely secondary to underlying liver disease We will follow with examination improved d/c home time of note does not reflect when patient was seen The liver and spleen are homogeneous. Gallbladder is contracted. Patient is not fasting. There is suggestion of gallbladder wall thickening. Question related to underlying liver disease. Common bile duct measures 4 mm. Pancreas is well visualized. The kidneys are normal in size, shape and axis. Aorta and cava are also obscured by bowel gas. Small amount of ascites noted along with bilateral effusions. IMPRESSION: GALLBLADDER IS CONTRACTED BUT THERE IS ALSO SUGGESTION OF SOME GALLBLADDER WALL THICKENING. QUESTION PRIMARY GALLBLADDER DISEASE VERSUS SECONDARY TO UNDERLYING LIVER DISEASE. PATIENT IS NOT FOCALLY TENDER. SMALL AMOUNT OF ASCITES. BILATERAL EFFUSIONS. Arsh Soto Nov 24, 2019 19:54
--- NOTE | 2019-11-27 12:37 | NUR ---
*-* NO DISCHARGE SUMMARY IN THE SYSTEM UNABLE TO FAX TO [facility] *-* Addendum: 11/28/19 at 1440 by EBENEZER CRENSHAW CM DEMETRIA QUESADA
== END 2019-11-24 18:43 | disposition home or self-care (01) | DRG 194 ==
LOC: EDBD 07:41 → EMR 08:00 → 2E 09:30 → EDBEDREQ 10:04
DX: I13.0 Hypertensive heart and chronic kidney disease with heart failure and stage 1 through stage 4 chronic kidney disease, or unspecified chronic kidney disease (principal); I50.21 Acute systolic (congestive) heart failure; N17.9 Acute kidney failure, unspecified; N18.9 Chronic kidney disease, unspecified; J44.9 Chronic obstructive pulmonary disease, unspecified; R94.5 Abnormal results of liver function studies; Z91.11 Patient's noncompliance with dietary regimen; Z91.19 Patient's noncompliance with other medical treatment and regimen; Z79.82 Long term (current) use of aspirin; R09.02 Hypoxemia; I25.2 Old myocardial infarction; Z87.891 Personal history of nicotine dependence; E87.70 Fluid overload, unspecified
CPT/HCPCS: 36415; 71045; 76700; 80053; 80061; 80076; 81001; 81003; 82044; 82150; 82248; 82570; 83036; 83690; 83735; 83880; 84100; 84300; 84443; 84484; 85025; 85610; 85651; 85730; 86140; 87081; 89050; 93005; 93306; 94640; 94664; 96374; 99285; J7620; U0002